=== PATIENT | female | born 1955 | race Caucasian/White ===

== ENCOUNTER 2017-03-24 11:07 | Outpatient (CLI) | payer BC ==
[~2017-03-24 11:07] MED LIST: AMLO5TAB16 PO; CLOP75TA35 PO; DILT30TA5 PO; ESOM40CA54 PO; GABA-534 PO; INSU100V11 SQ; LANTUS SQ; PER10325T PO; SITA100T11 PO
== END 2017-03-24 12:00 | disposition home or self-care (01) ==
LOC: WOUND CARE 11:07
PROVIDERS: ATTEND Surgery
DX: T87.89 Other complications of amputation stump (principal); E11.621 Type 2 diabetes mellitus with foot ulcer; L97.511 Non-pressure chronic ulcer of other part of right foot limited to breakdown of skin; E11.22 Type 2 diabetes mellitus with diabetic chronic kidney disease; I12.9 Hypertensive chronic kidney disease with stage 1 through stage 4 chronic kidney disease, or unspecified chronic kidney disease; N18.9 Chronic kidney disease, unspecified; I25.10 Atherosclerotic heart disease of native coronary artery without angina pectoris; I70.245 Atherosclerosis of native arteries of left leg with ulceration of other part of foot; E11.69 Type 2 diabetes mellitus with other specified complication; M86.9 Osteomyelitis, unspecified; I77.1 Stricture of artery; E11.51 Type 2 diabetes mellitus with diabetic peripheral angiopathy without gangrene; F17.210 Nicotine dependence, cigarettes, uncomplicated; Z79.899 Other long term (current) drug therapy; Z68.26 Body mass index [BMI] 26.0-26.9, adult; Z79.82 Long term (current) use of aspirin; Z79.4 Long term (current) use of insulin; Z90.49 Acquired absence of other specified parts of digestive tract; Y83.5 Amputation of limb(s) as the cause of abnormal reaction of the patient, or of later complication, without mention of misadventure at the time of the procedure
CPT/HCPCS: 36416; 82948; 99211; A6212; A6223; A6446

== ENCOUNTER 2017-04-01 10:28 | Day surgery (SDC) | payer BC ==
[2017-04-01] MEDS ORDERED: LIDOcaine 2% 5ml jelly ONE (11:05)
== END 2017-04-01 12:10 | disposition home or self-care (01) ==
LOC: WOUND CARE 10:28
PROVIDERS: ATTEND Surgery
DX: T87.89 Other complications of amputation stump (principal); E11.622 Type 2 diabetes mellitus with other skin ulcer; L97.821 Non-pressure chronic ulcer of other part of left lower leg limited to breakdown of skin; I77.1 Stricture of artery; I25.10 Atherosclerotic heart disease of native coronary artery without angina pectoris; E11.22 Type 2 diabetes mellitus with diabetic chronic kidney disease; I12.9 Hypertensive chronic kidney disease with stage 1 through stage 4 chronic kidney disease, or unspecified chronic kidney disease; N18.9 Chronic kidney disease, unspecified; E11.69 Type 2 diabetes mellitus with other specified complication; M86.9 Osteomyelitis, unspecified; E11.51 Type 2 diabetes mellitus with diabetic peripheral angiopathy without gangrene; F17.210 Nicotine dependence, cigarettes, uncomplicated; Z90.49 Acquired absence of other specified parts of digestive tract; Z68.26 Body mass index [BMI] 26.0-26.9, adult; Z79.82 Long term (current) use of aspirin; Z79.4 Long term (current) use of insulin; Z79.899 Other long term (current) drug therapy; Y83.5 Amputation of limb(s) as the cause of abnormal reaction of the patient, or of later complication, without mention of misadventure at the time of the procedure
CPT/HCPCS: 11042; 36416; 82948; A6021; A6212; A6222

== ENCOUNTER 2017-04-08 10:32 | Day surgery (SDC) | payer BC ==
[2017-04-08] MEDS ORDERED: LIDOcaine 2% 5ml jelly ONE (11:31)
[2017-04-08] MEDS ORDERED: hydrocortisone 1% cream 28gm TP ONE (11:50)
== END 2017-04-08 12:01 | disposition home or self-care (01) ==
LOC: WOUND CARE 10:32
PROVIDERS: ATTEND Surgery
DX: E11.622 Type 2 diabetes mellitus with other skin ulcer (principal); L97.811 Non-pressure chronic ulcer of other part of right lower leg limited to breakdown of skin; I77.1 Stricture of artery; E11.69 Type 2 diabetes mellitus with other specified complication; M86.9 Osteomyelitis, unspecified; E11.22 Type 2 diabetes mellitus with diabetic chronic kidney disease; E11.51 Type 2 diabetes mellitus with diabetic peripheral angiopathy without gangrene; I25.10 Atherosclerotic heart disease of native coronary artery without angina pectoris; I12.9 Hypertensive chronic kidney disease with stage 1 through stage 4 chronic kidney disease, or unspecified chronic kidney disease; N18.9 Chronic kidney disease, unspecified; F17.210 Nicotine dependence, cigarettes, uncomplicated; Z90.49 Acquired absence of other specified parts of digestive tract; Z68.26 Body mass index [BMI] 26.0-26.9, adult; Z79.82 Long term (current) use of aspirin; Z79.4 Long term (current) use of insulin; Z79.899 Other long term (current) drug therapy
CPT/HCPCS: 11042; 36416; 82948; A6021; A6206; A6209; A6212

== ENCOUNTER 2017-04-15 10:35 | Day surgery (SDC) | payer BC ==
[2017-04-15] MEDS ORDERED: LIDOcaine 2% 5ml jelly ONE (10:54)
== END 2017-04-15 11:44 | disposition home or self-care (01) ==
LOC: WOUND CARE 10:35
PROVIDERS: ATTEND Surgery
DX: E11.622 Type 2 diabetes mellitus with other skin ulcer (principal); L97.811 Non-pressure chronic ulcer of other part of right lower leg limited to breakdown of skin; T24.301D Burn of third degree of unspecified site of right lower limb, except ankle and foot, subsequent encounter; T31.0 Burns involving less than 10% of body surface; I77.1 Stricture of artery; E11.69 Type 2 diabetes mellitus with other specified complication; M86.9 Osteomyelitis, unspecified; E11.51 Type 2 diabetes mellitus with diabetic peripheral angiopathy without gangrene; I25.10 Atherosclerotic heart disease of native coronary artery without angina pectoris; E11.22 Type 2 diabetes mellitus with diabetic chronic kidney disease; I12.9 Hypertensive chronic kidney disease with stage 1 through stage 4 chronic kidney disease, or unspecified chronic kidney disease; N18.9 Chronic kidney disease, unspecified; F17.210 Nicotine dependence, cigarettes, uncomplicated; Z89.512 Acquired absence of left leg below knee; Z90.49 Acquired absence of other specified parts of digestive tract; Z68.26 Body mass index [BMI] 26.0-26.9, adult; Z79.82 Long term (current) use of aspirin; Z79.4 Long term (current) use of insulin; Z79.899 Other long term (current) drug therapy; X08.8XXD Exposure to other specified smoke, fire and flames, subsequent encounter
CPT/HCPCS: 11042; 36416; 82948; A6021; A6222; A6446

== ENCOUNTER 2017-04-22 10:50 | Day surgery (SDC) | payer BC ==
[2017-04-22] MEDS ORDERED: LIDOcaine 2% 5ml jelly ONE (11:19)
[2017-04-22] MEDS ORDERED: FURO-150 PO (12:52)
== END 2017-04-22 11:56 | disposition home or self-care (01) ==
LOC: WOUND CARE 10:50
PROVIDERS: ATTEND Surgery
DX: E11.622 Type 2 diabetes mellitus with other skin ulcer (principal); L97.811 Non-pressure chronic ulcer of other part of right lower leg limited to breakdown of skin; T24.301D Burn of third degree of unspecified site of right lower limb, except ankle and foot, subsequent encounter; T31.0 Burns involving less than 10% of body surface; I77.1 Stricture of artery; E11.69 Type 2 diabetes mellitus with other specified complication; M86.9 Osteomyelitis, unspecified; E11.51 Type 2 diabetes mellitus with diabetic peripheral angiopathy without gangrene; I25.10 Atherosclerotic heart disease of native coronary artery without angina pectoris; E11.22 Type 2 diabetes mellitus with diabetic chronic kidney disease; I12.9 Hypertensive chronic kidney disease with stage 1 through stage 4 chronic kidney disease, or unspecified chronic kidney disease; N18.9 Chronic kidney disease, unspecified; F17.210 Nicotine dependence, cigarettes, uncomplicated; Z89.512 Acquired absence of left leg below knee; Z90.49 Acquired absence of other specified parts of digestive tract; Z68.26 Body mass index [BMI] 26.0-26.9, adult; Z79.82 Long term (current) use of aspirin; Z79.4 Long term (current) use of insulin; Z79.899 Other long term (current) drug therapy; X08.8XXD Exposure to other specified smoke, fire and flames, subsequent encounter
CPT/HCPCS: 11042; 36416; 82948; A6021; A6196; A6206

== ENCOUNTER 2017-04-29 10:36 | Outpatient (CLI) | payer BC ==
[~2017-04-29 10:36] MED LIST changes: +FURO-150 PO
== END 2017-04-29 12:05 | disposition home or self-care (01) ==
LOC: WOUND CARE 10:36
PROVIDERS: ATTEND Surgery
DX: E11.622 Type 2 diabetes mellitus with other skin ulcer (principal); L97.811 Non-pressure chronic ulcer of other part of right lower leg limited to breakdown of skin; T24.301D Burn of third degree of unspecified site of right lower limb, except ankle and foot, subsequent encounter; T31.0 Burns involving less than 10% of body surface; I77.1 Stricture of artery; E11.69 Type 2 diabetes mellitus with other specified complication; M86.9 Osteomyelitis, unspecified; E11.51 Type 2 diabetes mellitus with diabetic peripheral angiopathy without gangrene; I25.10 Atherosclerotic heart disease of native coronary artery without angina pectoris; E11.22 Type 2 diabetes mellitus with diabetic chronic kidney disease; I12.9 Hypertensive chronic kidney disease with stage 1 through stage 4 chronic kidney disease, or unspecified chronic kidney disease; N18.9 Chronic kidney disease, unspecified; F17.210 Nicotine dependence, cigarettes, uncomplicated; Z89.512 Acquired absence of left leg below knee; Z90.49 Acquired absence of other specified parts of digestive tract; Z68.26 Body mass index [BMI] 26.0-26.9, adult; Z79.82 Long term (current) use of aspirin; Z79.4 Long term (current) use of insulin; Z79.899 Other long term (current) drug therapy; X08.8XXD Exposure to other specified smoke, fire and flames, subsequent encounter
CPT/HCPCS: 36416; 82948; 93922; 93926; 99215; A6021; A6196; A6206

== ENCOUNTER 2017-05-06 10:40 | Day surgery (SDC) | payer BC ==
[2017-05-06] MEDS ORDERED: LIDOcaine 2% 5ml jelly ONE (11:11)
[2017-05-06] MEDS ORDERED: CEPH-571 PO (13:45)
== END 2017-05-06 12:16 | disposition home or self-care (01) ==
LOC: WOUND CARE 10:40
PROVIDERS: ATTEND Surgery
DX: E11.622 Type 2 diabetes mellitus with other skin ulcer (principal); L97.811 Non-pressure chronic ulcer of other part of right lower leg limited to breakdown of skin; T24.301D Burn of third degree of unspecified site of right lower limb, except ankle and foot, subsequent encounter; T31.0 Burns involving less than 10% of body surface; I77.1 Stricture of artery; E11.69 Type 2 diabetes mellitus with other specified complication; M86.9 Osteomyelitis, unspecified; E11.51 Type 2 diabetes mellitus with diabetic peripheral angiopathy without gangrene; I25.10 Atherosclerotic heart disease of native coronary artery without angina pectoris; E11.22 Type 2 diabetes mellitus with diabetic chronic kidney disease; I12.9 Hypertensive chronic kidney disease with stage 1 through stage 4 chronic kidney disease, or unspecified chronic kidney disease; N18.9 Chronic kidney disease, unspecified; F17.210 Nicotine dependence, cigarettes, uncomplicated; Z89.512 Acquired absence of left leg below knee; Z90.49 Acquired absence of other specified parts of digestive tract; Z68.26 Body mass index [BMI] 26.0-26.9, adult; Z79.82 Long term (current) use of aspirin; Z79.4 Long term (current) use of insulin; Z79.899 Other long term (current) drug therapy; X08.8XXD Exposure to other specified smoke, fire and flames, subsequent encounter
CPT/HCPCS: 11042; 36416; 82948; 97597; A6021; A6196; A6206

== ENCOUNTER 2017-05-13 10:45 | Day surgery (SDC) | payer BC ==
[~2017-05-13 10:45] MED LIST changes: +CEPH-571 PO
[2017-05-13] MEDS ORDERED: LIDOcaine 2% 5ml jelly ONE (11:06)
[2017-05-13] MEDS ORDERED: CLIN300C11 (14:35)
== END 2017-05-13 12:15 | disposition home or self-care (01) ==
LOC: WOUND CARE 10:45
PROVIDERS: ATTEND Surgery
DX: E11.622 Type 2 diabetes mellitus with other skin ulcer (principal); L97.811 Non-pressure chronic ulcer of other part of right lower leg limited to breakdown of skin; L97.311 Non-pressure chronic ulcer of right ankle limited to breakdown of skin; E11.621 Type 2 diabetes mellitus with foot ulcer; L97.511 Non-pressure chronic ulcer of other part of right foot limited to breakdown of skin; T24.301D Burn of third degree of unspecified site of right lower limb, except ankle and foot, subsequent encounter; T31.0 Burns involving less than 10% of body surface; I77.1 Stricture of artery; E11.69 Type 2 diabetes mellitus with other specified complication; M86.9 Osteomyelitis, unspecified; E11.51 Type 2 diabetes mellitus with diabetic peripheral angiopathy without gangrene; I25.10 Atherosclerotic heart disease of native coronary artery without angina pectoris; E11.22 Type 2 diabetes mellitus with diabetic chronic kidney disease; I12.9 Hypertensive chronic kidney disease with stage 1 through stage 4 chronic kidney disease, or unspecified chronic kidney disease; N18.9 Chronic kidney disease, unspecified; F17.210 Nicotine dependence, cigarettes, uncomplicated; Z89.512 Acquired absence of left leg below knee; Z90.49 Acquired absence of other specified parts of digestive tract; Z68.26 Body mass index [BMI] 26.0-26.9, adult; Z79.82 Long term (current) use of aspirin; Z79.4 Long term (current) use of insulin; Z79.899 Other long term (current) drug therapy; X08.8XXD Exposure to other specified smoke, fire and flames, subsequent encounter
CPT/HCPCS: 36416; 82948; 97597; A6021; A6196; A6206; A6446

== ENCOUNTER 2017-05-20 10:48 | Day surgery (SDC) | payer BC ==
[~2017-05-20 10:48] MED LIST changes: -CEPH-571 PO; +CLIN300C11
[2017-05-20] MEDS ORDERED: LIDOcaine 2% 5ml jelly ONE (11:39)
== END 2017-05-20 12:20 | disposition home or self-care (01) ==
LOC: WOUND CARE 10:48
PROVIDERS: ATTEND Surgery
DX: T24.301D Burn of third degree of unspecified site of right lower limb, except ankle and foot, subsequent encounter (principal); T31.0 Burns involving less than 10% of body surface; S91.104D Unspecified open wound of right lesser toe(s) without damage to nail, subsequent encounter; S91.101D Unspecified open wound of right great toe without damage to nail, subsequent encounter; I25.10 Atherosclerotic heart disease of native coronary artery without angina pectoris; E11.69 Type 2 diabetes mellitus with other specified complication; I77.1 Stricture of artery; M86.9 Osteomyelitis, unspecified; E11.51 Type 2 diabetes mellitus with diabetic peripheral angiopathy without gangrene; E11.22 Type 2 diabetes mellitus with diabetic chronic kidney disease; N18.9 Chronic kidney disease, unspecified; F17.210 Nicotine dependence, cigarettes, uncomplicated; Z89.512 Acquired absence of left leg below knee; Z90.49 Acquired absence of other specified parts of digestive tract; Z68.26 Body mass index [BMI] 26.0-26.9, adult; Z79.82 Long term (current) use of aspirin; Z79.4 Long term (current) use of insulin; Z79.899 Other long term (current) drug therapy; X08.8XXD Exposure to other specified smoke, fire and flames, subsequent encounter; X58.XXXD Exposure to other specified factors, subsequent encounter
CPT/HCPCS: 11042; 97597; A6021; A6196; A6206; A6446

== ENCOUNTER 2017-05-26 09:35 | Day surgery (SDC) | payer BC ==
[2017-05-26] MEDS ORDERED: LIDOcaine 2% 5ml jelly ONE (10:02)
== END 2017-05-26 11:16 | disposition home or self-care (01) ==
LOC: WOUND CARE 09:35
PROVIDERS: ATTEND Surgery
DX: T24.301D Burn of third degree of unspecified site of right lower limb, except ankle and foot, subsequent encounter (principal); T31.0 Burns involving less than 10% of body surface; S91.104D Unspecified open wound of right lesser toe(s) without damage to nail, subsequent encounter; S91.101D Unspecified open wound of right great toe without damage to nail, subsequent encounter; I25.10 Atherosclerotic heart disease of native coronary artery without angina pectoris; E11.69 Type 2 diabetes mellitus with other specified complication; I77.1 Stricture of artery; M86.9 Osteomyelitis, unspecified; E11.51 Type 2 diabetes mellitus with diabetic peripheral angiopathy without gangrene; E11.22 Type 2 diabetes mellitus with diabetic chronic kidney disease; N18.9 Chronic kidney disease, unspecified; F17.210 Nicotine dependence, cigarettes, uncomplicated; Z89.512 Acquired absence of left leg below knee; Z90.49 Acquired absence of other specified parts of digestive tract; Z68.26 Body mass index [BMI] 26.0-26.9, adult; Z79.82 Long term (current) use of aspirin; Z79.4 Long term (current) use of insulin; Z79.899 Other long term (current) drug therapy; X08.8XXD Exposure to other specified smoke, fire and flames, subsequent encounter; X58.XXXD Exposure to other specified factors, subsequent encounter
CPT/HCPCS: 11042; 97597; A6021; A6196; A6206; A6212; A6446

== ENCOUNTER 2017-05-30 12:30 | Inpatient (IN) | payer BC ==
[~2017-05-30] VITALS: Ht 157.5 cm; Wt 65.9 kg
[2017-05-30] MEDS ORDERED: heparin 10,000 units/1 ML INJ IV ONE (13:00)
[2017-05-30] MEDS ORDERED: heparin 10,000 units/1 ML INJ IV PRN (13:00)
[2017-05-30 13:39] LABS: BASOPHILS % (AUTO) 0.3 % (0-1); EOSINOPHILS # (AUTO) 0.4 X10'3 (0-0.9); EOSINOPHILS % (AUTO) 3.1 % (0-6); HEMATOCRIT 37.5 % (35.0-45.0); HEMOGLOBIN 12.3 g/dl (12.0-16.0); LYMPHOCYTES # (AUTO) 1.9 X10'3 (1.1-4.8); LYMPHOCYTES % (AUTO) 16.3 % (21-51); MEAN CORPUSCULAR HEMOGLOBIN 23.8 PG (27.0-31.0); MEAN CORPUSCULAR HGB CONC 32.8 % (33.0-36.5); MEAN CORPUSCULAR VOLUME 72.6 FL (78-98); MEAN PLATELET VOLUME 7.6 FL (7.4-10.4); MONOCYTES # (AUTO) 0.7 X10'3 (0-0.9); MONOCYTES % (AUTO) 6.1 % (2-12); NEUTROPHILS # (AUTO) 8.4 X10'3 (1.8-7.7); NEUTROPHILS % (AUTO) 74.2 % (42-75); PLATELET COUNT 444 X10'3 (140-440); RED BLOOD COUNT 5.16 X10'6 (4.20-5.60); RED CELL DISTRIBUTION WIDTH 13.8 % (11.5-14.5); WHITE BLOOD COUNT 11.4 X10'3 (4.5-11.0)
[2017-05-30] MEDS ORDERED: ATOR20TA66 PO (13:48)
[2017-05-30] MEDS ORDERED: AMIT10TA6 PO (13:48)
[2017-05-30] MEDS ORDERED: LIRA0.6P SUBCUT (13:48)
[2017-05-30] MEDS ORDERED: GABA800T2 PO (13:48)
[2017-05-30 13:49] LABS: INR 1.1 INR; PARTIAL THROMBOPLASTIN TIME 27 SECONDS (22-32)
[2017-05-30 13:54] LABS: ALANINE AMINOTRANSFERASE 22 U/L (12-78); ALBUMIN 2.8 G/DL (3.4-5.0); ALBUMIN/GLOBULIN RATIO 0.5 (1.1-1.5); ALKALINE PHOSPHATASE 191 IU/L (46-116); ANION GAP 9 (8-16); ASPARTATE AMINO TRANSFERASE 24 U/L (10-37); BILIRUBIN,TOTAL 0.3 MG/DL (0.1-1.0); BLOOD UREA NITROGEN 15 MG/DL (7-18); BUN/CREATININE RATIO 23.4 (6.6-38.0); CALCIUM 9.6 MG/DL (8.5-10.1); CHLORIDE 98 MMOL/L (99-107); CREATININE 0.64 MG/DL (0.40-0.90); GLUCOSE 238 MG/DL (70-104); MAGNESIUM 1.7 MG/DL (1.5-2.4); POTASSIUM 3.3 MMOL/L (3.5-5.1); SODIUM 138 MMOL/L (135-145); TOTAL CARBON DIOXIDE 31.5 MMOL/L (24-32); eGFR > 90 ML/MIN
[2017-05-30] MEDS ORDERED: HYDROcodone/acetaminophen 5mg/325mg tablet PO PRN (15:25)
[2017-05-30] MEDS ORDERED: potassium Cl 20 mEq SR tablet PO PRN (15:25)
[2017-05-30] MEDS ORDERED: magnesium 4gm in 100ml NS 100 ML IV PRN (15:25)
[2017-05-30] MEDS ORDERED: magnesium hydroxide 30ml (MOM) UD suspension PO PRN (15:25)
[2017-05-30] MEDS ORDERED: magnesium 2GM in 50ml NS 50 ML IV PRN (15:25)
[2017-05-30] MEDS ORDERED: HYDROcodone/acetaminophen 10/325mg tab PO PRN (15:25)
[2017-05-30] MEDS ORDERED: bisacodyl 10mg suppository rectal RC PRN (15:25)
[2017-05-30] MEDS ORDERED: potassium Cl 40MEQ/NS 500ml 500 ML IV PRN ×2 (15:25)
[2017-05-30] MEDS ORDERED: morphine 4 MG/ML inj SYRINge IV PRN ×2 (15:25)
[2017-05-30] MEDS ORDERED: mag hydrox/Alum hydrox/simeth 30ml oral suspension PO PRN (15:25)
[2017-05-30] MEDS ORDERED: vancomycin/NS 1 GM ADD-VANTAGE 250 ML IV ONE (15:36)
[2017-05-30] MEDS ORDERED: MESSAGE TO PHARMACY PO ONE (15:40)
[2017-05-30] MEDS ORDERED: glucagon, human recombinant 1mg kit SUBCUT PRN (15:40)
[2017-05-30] MEDS ORDERED: dextrose 50%-water 50ml dispensing syringe IV PRN ×2 (15:40)
[2017-05-30] MEDS ORDERED: dextrose ORAL solution 15 GM/59 ML bottle PO PRN ×2 (15:40)
[2017-05-30 16:19] LABS: HEMOGLOBIN A1C 8.4 % (4.5-6.2)
[2017-05-30] MEDS: metroNIDAZOLE-Flagyl 500mg/NS 100 ML IV SCH ×2 (16:20→23:48)
[2017-05-30] MEDS: potassium cl 20mEq in 1/2 NS 1,000 ML IV SCH (17:09)
[2017-05-30] MEDS: aztreonam inj. 1,000 MG in normal saline 100ml IV soln 100 ML IV SCH (18:42)
[2017-05-30 19:00] VITALS: BP 148/63
[2017-05-30] MEDS: oxyCODONE/APAP 10/325mg tablet PO PRN (20:11)
[2017-05-30] MEDS: diltiazem 30mg tablet PO SCH (20:26)
[2017-05-30] MEDS: docusate sod 100mg capsule PO SCH (20:26)
[2017-05-30] MEDS: gabapentin 400mg capsule PO SCH (20:26)
[2017-05-30] MEDS: insulin glargine (Lantus) pen - multi-dose SQ SCH (20:33)
[2017-05-30] MEDS: heparin 10,000 units/1 ML INJ IV PRN (21:28)
[2017-05-30 23:00] VITALS: BP 122/54
[2017-05-31] VITALS (15 sets, daily range): BP systolic 122–167; BP diastolic 49–67
[2017-05-31] MEDS: aztreonam inj. 1,000 MG in normal saline 100ml IV soln 100 ML IV SCH ×4 (01:09→23:59)
[2017-05-31] MEDS: diltiazem 30mg tablet PO SCH ×4 (02:08→21:27)
[2017-05-31] MEDS: oxyCODONE/APAP 10/325mg tablet PO PRN (02:08)
[2017-05-31] MEDS: vancomycin/NS 1 GM ADD-VANTAGE 250 ML IV SCH ×2 (03:44→21:27)
[2017-05-31] MEDS: potassium cl 20mEq in 1/2 NS 1,000 ML IV SCH ×2 (03:53→18:43)
[2017-05-31 03:56] LABS: BASOPHILS % (AUTO) 0.5 % (0-1); EOSINOPHILS # (AUTO) 0.5 X10'3 (0-0.9); EOSINOPHILS % (AUTO) 5.5 % (0-6); HEMATOCRIT 32.3 % (35.0-45.0); HEMOGLOBIN 10.9 g/dl (12.0-16.0); LYMPHOCYTES # (AUTO) 1.8 X10'3 (1.1-4.8); LYMPHOCYTES % (AUTO) 21.9 % (21-51); MEAN CORPUSCULAR HEMOGLOBIN 24.1 PG (27.0-31.0); MEAN CORPUSCULAR HGB CONC 33.9 % (33.0-36.5); MEAN PLATELET VOLUME 7.6 FL (7.4-10.4); MONOCYTES # (AUTO) 0.6 X10'3 (0-0.9); MONOCYTES % (AUTO) 7.2 % (2-12); NEUTROPHILS # (AUTO) 5.4 X10'3 (1.8-7.7); NEUTROPHILS % (AUTO) 64.9 % (42-75); PLATELET COUNT 378 X10'3 (140-440); RED BLOOD COUNT 4.55 X10'6 (4.20-5.60); RED CELL DISTRIBUTION WIDTH 13.6 % (11.5-14.5); WHITE BLOOD COUNT 8.3 X10'3 (4.5-11.0)
[2017-05-31 04:09] LABS: ALBUMIN 2.3 G/DL (3.4-5.0); ANION GAP 7 (8-16); BLOOD UREA NITROGEN 11 MG/DL (7-18); BUN/CREATININE RATIO 21.2 (6.6-38.0); CALCIUM 8.3 MG/DL (8.5-10.1); CHLORIDE 103 MMOL/L (99-107); CHOL/HDL RATIO 5.2 (0.00-4.99); CHOLESTEROL 124 MG/DL (0-200); CREATININE 0.52 MG/DL (0.40-0.90); GLUCOSE 137 MG/DL (70-104); HDL CHOLESTEROL 24 MG/DL (35-60); LDL CHOLESTEROL 77 MG/DL (50-100); MAGNESIUM 1.5 MG/DL (1.5-2.4); POTASSIUM 3.6 MMOL/L (3.5-5.1); SODIUM 138 MMOL/L (135-145); TOTAL CARBON DIOXIDE 28.5 MMOL/L (24-32); TRIGLYCERIDES 127 MG/DL (20-135); TROPONIN I < 0.04 NG/ML (0.0-0.05); eGFR > 90 ML/MIN
[2017-05-31] MEDS: heparin 10,000 units/1 ML INJ IV PRN (04:36)
[2017-05-31] MEDS: K and/or MAG REPLACEMENT MC SCH (06:49)
[2017-05-31] MEDS: pantoprazole 40mg Tablet.DR PO SCH (07:30)
[2017-05-31] MEDS: clopidogrel 75mg tablet PO SCH (08:00)
[2017-05-31] MEDS: docusate sod 100mg capsule PO SCH ×2 (08:00→21:27)
[2017-05-31] MEDS: gabapentin 400mg capsule PO SCH ×3 (08:00→21:27)
[2017-05-31] MEDS: amitriptyline 10mg tablet PO SCH (08:00)
[2017-05-31] MEDS: atorvastatin 20mg tablet PO SCH (08:00)
[2017-05-31] MEDS: amLODIPine 5mg tablet PO SCH (08:00)
[2017-05-31] MEDS: insulin Lispro (HumaLOG) vial - multi-dose SQ SCH (08:39)
[2017-05-31] MEDS: metroNIDAZOLE-Flagyl 500mg/NS 100 ML IV SCH ×2 (10:28→18:43)
[2017-05-31] MEDS ORDERED: heparin 10,000 units/1 ML INJ ONE (10:37)
[2017-05-31] MEDS ORDERED: gadopentetate dimeglumine 7.5 MMOL/15 ML syringe ONE (10:46)
[2017-05-31] MEDS ORDERED: sevoflurane 250ml liquid IH ONE (12:28)
[2017-05-31] MEDS ORDERED: MIDAZolam 5mg/5ml vial ONE (12:32)
[2017-05-31] MEDS ORDERED: fentaNYL /PF 50mcg/ml 5ml ampule ONE (12:32)
[2017-05-31] MEDS ORDERED: propofol inj 20 ML IV ONE (12:33)
[2017-05-31] MEDS ORDERED: LIDOcaine 1%/PF (10mg/ml) 5ml vial ONE (12:33)
[2017-05-31] MEDS ORDERED: albumin (Human) 5% 250ml 250 ML IV ONE ×2 (12:45→12:51)
[2017-05-31] MEDS ORDERED: ePHEDrine 50MG/ML INJ. ONE (12:49)
[2017-05-31] MEDS ORDERED: LIDOcaine 2% (20mg/ml) 5ml vial ONE (12:50)
[2017-05-31] MEDS ORDERED: metoclopramide 5 mg/ml inj ONE (12:54)
[2017-05-31] MEDS ORDERED: rocuronium 10mg/ml inj IV ONE ×2 (13:09→15:02)
[2017-05-31] MEDS ORDERED: ringers solution, lacted 1,000 ML IV SCH (13:26)
[2017-05-31] MEDS ORDERED: labetalol 5mg/ml 20ml inj. IV PRN (13:30)
[2017-05-31] MEDS ORDERED: proMETHazine 25mg rectal suppository RC PRN (13:30)
[2017-05-31] MEDS ORDERED: morphine 4 MG/ML inj SYRINge IV PRN ×2 (13:30)
[2017-05-31] MEDS ORDERED: fentaNYL/PF 50MCG/1 ML 2ML syringe IV PRN ×2 (13:30)
[2017-05-31] MEDS ORDERED: hydrALAZINE 20mg/ml inj. IV PRN (13:30)
[2017-05-31] MEDS ORDERED: aprepitant 40mg capsule PO ONE (13:30)
[2017-05-31] MEDS ORDERED: labetalol 5mg/ml 20ml inj. IV ONE (14:10)
[2017-05-31] MEDS ORDERED: fentaNYL/PF 50MCG/1 ML 2ML syringe ONE ×2 (14:50→15:59)
[2017-05-31] MEDS ORDERED: heparin 1,000unit/ml 10ml vial 10 ML ONE (15:01)
[2017-05-31] MEDS ORDERED: glycopyrrolate 0.2mg/ml inj ONE (16:16)
[2017-05-31] MEDS ORDERED: neostigmine methylsulfate 1 MG/ML 10ml vial ONE (16:16)
[2017-05-31] MEDS ORDERED: morphine 10mg/ml inj. ONE ×2 (16:28→16:38)
[2017-05-31 17:28] LABS: INR 1.1 INR; PROTHROMBIN TIME 11.8 SECONDS (9.0-12.0)
[2017-05-31 17:31] LABS: PARTIAL THROMBOPLASTIN TIME 123 SECONDS (22-32)
[2017-05-31 17:35] LABS: ISTAT ANION GAP 11 (8-12); ISTAT BUN 4 mg/dL (6-19); ISTAT CL 102 mmol/L (99-107); ISTAT CREATININE 0.3 mg/dL (0.6-1.1); ISTAT GLUCOSE 150 mg/dL (70-104); ISTAT HGB 8.8 g/dl (12.0-16.0); ISTAT Hct 26 %PCV (35-48); ISTAT IONIZED CALCIUM 1.18 mmol/L (1.03-1.32); ISTAT K 3.3 mmol/L (3.5-5.1); ISTAT NA 140 mmol/L (135-145); ISTAT TOTAL CO2 27 mmol/L (24-32); ISTAT eGFR > 90 ML/MIN; POC BUN/CREATININE RATIO 13.3 (6.6-38.0)
[2017-05-31] MEDS ORDERED: HYDROmorphone/NS 1 mg/ml CADD 50 ML IV SCH (19:20)
[2017-05-31] MEDS ORDERED: heparin 10,000 units/1 ML INJ IV PRN (19:20)
[2017-05-31] MEDS ORDERED: naloxone 0.4 mg/ml inj IV PRN (19:50)
[2017-05-31] MEDS ORDERED: morphine 4 MG/ML inj SYRINge IV ONE (19:55)
[2017-05-31] MEDS: MORPHINE CADD 5 MG/ML 50ML IV SCH ×2 (20:47→23:00)
[2017-05-31] MEDS: insulin glargine (Lantus) pen - multi-dose SQ SCH (21:32)
[2017-06-01] VITALS (23 sets, daily range): BP systolic 95–155; BP diastolic 42–58
[2017-06-01] MEDS: MORPHINE CADD 5 MG/ML 50ML IV SCH ×4 (01:00→07:00)
[2017-06-01] MEDS: metroNIDAZOLE-Flagyl 500mg/NS 100 ML IV SCH ×4 (01:26→23:58)
[2017-06-01] MEDS: diltiazem 30mg tablet PO SCH ×4 (01:59→21:14)
[2017-06-01] MEDS: HYDROcodone/acetaminophen 10/325mg tab PO PRN ×3 (02:06→14:38)
[2017-06-01 03:33] LABS: BASOPHILS % (AUTO) 0.4 % (0-1); EOSINOPHILS # (AUTO) 0.4 X10'3 (0-0.9); EOSINOPHILS % (AUTO) 3.6 % (0-6); HEMATOCRIT 27.1 % (35.0-45.0); LYMPHOCYTES # (AUTO) 1.5 X10'3 (1.1-4.8); LYMPHOCYTES % (AUTO) 14.1 % (21-51); MEAN CORPUSCULAR HEMOGLOBIN 24.1 PG (27.0-31.0); MEAN CORPUSCULAR HGB CONC 33.3 % (33.0-36.5); MEAN CORPUSCULAR VOLUME 72.2 FL (78-98); MEAN PLATELET VOLUME 7.7 FL (7.4-10.4); MONOCYTES # (AUTO) 0.6 X10'3 (0-0.9); MONOCYTES % (AUTO) 5.6 % (2-12); NEUTROPHILS # (AUTO) 8.3 X10'3 (1.8-7.7); NEUTROPHILS % (AUTO) 76.3 % (42-75); PLATELET COUNT 385 X10'3 (140-440); RED BLOOD COUNT 3.75 X10'6 (4.20-5.60); RED CELL DISTRIBUTION WIDTH 13.7 % (11.5-14.5); WHITE BLOOD COUNT 10.9 X10'3 (4.5-11.0)
[2017-06-01 03:45] LABS: ALBUMIN 2.5 G/DL (3.4-5.0); ANION GAP 8 (8-16); BLOOD UREA NITROGEN 4 MG/DL (7-18); BUN/CREATININE RATIO 11.4 (6.6-38.0); CALCIUM 8.2 MG/DL (8.5-10.1); CHLORIDE 103 MMOL/L (99-107); CREATININE 0.35 MG/DL (0.40-0.90); GLUCOSE 155 MG/DL (70-104); MAGNESIUM 1.4 MG/DL (1.5-2.4); POTASSIUM 3.3 MMOL/L (3.5-5.1); SODIUM 139 MMOL/L (135-145); TOTAL CARBON DIOXIDE 27.7 MMOL/L (24-32); eGFR > 90 ML/MIN
[2017-06-01] MEDS: potassium cl 20mEq in 1/2 NS 1,000 ML IV SCH ×2 (07:30→21:23)
[2017-06-01] MEDS: pantoprazole 40mg Tablet.DR PO SCH (07:31)
[2017-06-01] MEDS: gabapentin 400mg capsule PO SCH ×3 (07:32→21:15)
[2017-06-01] MEDS: amLODIPine 5mg tablet PO SCH (07:32)
[2017-06-01] MEDS: atorvastatin 20mg tablet PO SCH (07:32)
[2017-06-01] MEDS: potassium Cl 20 mEq SR tablet PO PRN ×3 (07:33→21:14)
[2017-06-01] MEDS: clopidogrel 75mg tablet PO SCH (07:33)
[2017-06-01] MEDS: docusate sod 100mg capsule PO SCH ×2 (07:43→21:14)
[2017-06-01] MEDS: K and/or MAG REPLACEMENT MC SCH (08:00)
[2017-06-01] MEDS: aztreonam inj. 1,000 MG in normal saline 100ml IV soln 100 ML IV SCH ×2 (08:49→17:16)
[2017-06-01] MEDS: amitriptyline 10mg tablet PO SCH (08:49)
[2017-06-01] MEDS: magnesium Cl slow-release 64mg tablet PO PRN ×2 (08:50→21:15)
[2017-06-01] MEDS: morphine/NS 5 mg/ml CADD 50 ML IV SCH ×9 (09:00→23:59)
[2017-06-01] MEDS: vancomycin/NS 1 GM ADD-VANTAGE 250 ML IV SCH ×2 (10:07→21:28)
[2017-06-01] MEDS ORDERED: apixaban 5mg tablet PO SCH (14:33)
[2017-06-01 15:14] LABS: HEMOGLOBIN 9.1 g/dl (12.0-16.0); MEAN CORPUSCULAR HEMOGLOBIN 24.3 PG (27.0-31.0); MEAN CORPUSCULAR HGB CONC 33.5 % (33.0-36.5); MEAN CORPUSCULAR VOLUME 72.6 FL (78-98); MEAN PLATELET VOLUME 7.9 FL (7.4-10.4); PLATELET COUNT 403 X10'3 (140-440); RED BLOOD COUNT 3.72 X10'6 (4.20-5.60); WHITE BLOOD COUNT 13.1 X10'3 (4.5-11.0)
[2017-06-01] MEDS ORDERED: VANCOMYCIN LEVEL IV ONE (15:30)
[2017-06-01] MEDS: apixaban 5mg tablet PO SCH ×2 (15:38→20:00)
[2017-06-01] MEDS: lactobacillus rhamnosus 10,000 MMU CELLS/CAPSULE PO SCH (21:14)
[2017-06-01] MEDS: ferrous sulfate 325mg tablet PO SCH (21:15)
[2017-06-01] MEDS: insulin glargine (Lantus) pen - multi-dose SQ SCH (21:20)
[2017-06-01 23:05] LABS: HEMATOCRIT 24.4 % (35.0-45.0); HEMOGLOBIN 8.1 g/dl (12.0-16.0); MEAN CORPUSCULAR HEMOGLOBIN 23.9 PG (27.0-31.0); MEAN CORPUSCULAR HGB CONC 33.1 % (33.0-36.5); MEAN CORPUSCULAR VOLUME 72.1 FL (78-98); MEAN PLATELET VOLUME 7.6 FL (7.4-10.4); PLATELET COUNT 341 X10'3 (140-440); RED BLOOD COUNT 3.38 X10'6 (4.20-5.60); RED CELL DISTRIBUTION WIDTH 14.8 % (11.5-14.5); WHITE BLOOD COUNT 10.9 X10'3 (4.5-11.0)
[2017-06-02] VITALS (16 sets, daily range): BP systolic 93–142; BP diastolic 47–74
[2017-06-02] MEDS: aztreonam inj. 1,000 MG in normal saline 100ml IV soln 100 ML IV SCH ×3 (01:15→15:46)
[2017-06-02] MEDS: acetaminophen 325mg tablet PO PRN ×2 (01:30→15:46)
[2017-06-02] MEDS: diltiazem 30mg tablet PO SCH ×4 (01:32→20:01)
[2017-06-02] MEDS: morphine/NS 5 mg/ml CADD 50 ML IV SCH ×11 (03:00→23:00)
[2017-06-02] MEDS: potassium cl 20mEq in 1/2 NS 1,000 ML IV SCH ×2 (05:53→09:32)
[2017-06-02 06:17] LABS: BASOPHILS % (AUTO) 0.3 % (0-1); EOSINOPHILS # (AUTO) 0.3 X10'3 (0-0.9); HEMOGLOBIN 8.6 g/dl (12.0-16.0); LYMPHOCYTES # (AUTO) 2.3 X10'3 (1.1-4.8); LYMPHOCYTES % (AUTO) 17.7 % (21-51); MEAN CORPUSCULAR HGB CONC 33.1 % (33.0-36.5); MEAN CORPUSCULAR VOLUME 72.6 FL (78-98); MEAN PLATELET VOLUME 7.6 FL (7.4-10.4); MONOCYTES # (AUTO) 1.1 X10'3 (0-0.9); MONOCYTES % (AUTO) 8.2 % (2-12); NEUTROPHILS # (AUTO) 9.3 X10'3 (1.8-7.7); NEUTROPHILS % (AUTO) 71.8 % (42-75); PLATELET COUNT 376 X10'3 (140-440); RED BLOOD COUNT 3.58 X10'6 (4.20-5.60); RED CELL DISTRIBUTION WIDTH 13.7 % (11.5-14.5); WHITE BLOOD COUNT 12.9 X10'3 (4.5-11.0)
[2017-06-02 06:29] LABS: ALBUMIN 2.2 G/DL (3.4-5.0); ANION GAP 7 (8-16); BLOOD UREA NITROGEN 5 MG/DL (7-18); BUN/CREATININE RATIO 9.8 (6.6-38.0); CHLORIDE 102 MMOL/L (99-107); CREATININE 0.51 MG/DL (0.40-0.90); GLUCOSE 166 MG/DL (70-104); MAGNESIUM 1.6 MG/DL (1.5-2.4); POTASSIUM 3.8 MMOL/L (3.5-5.1); SODIUM 136 MMOL/L (135-145); TOTAL CARBON DIOXIDE 26.8 MMOL/L (24-32); eGFR > 90 ML/MIN
[2017-06-02] MEDS: atorvastatin 20mg tablet PO SCH (07:39)
[2017-06-02] MEDS: lactobacillus rhamnosus 10,000 MMU CELLS/CAPSULE PO SCH ×2 (07:39→20:02)
[2017-06-02] MEDS: gabapentin 400mg capsule PO SCH ×3 (07:39→21:59)
[2017-06-02] MEDS: multivitamins, therapeutics tablet PO SCH (07:39)
[2017-06-02] MEDS: docusate sod 100mg capsule PO SCH ×2 (07:39→20:02)
[2017-06-02] MEDS: ferrous sulfate 325mg tablet PO SCH ×2 (07:40→20:01)
[2017-06-02] MEDS: metroNIDAZOLE-Flagyl 500mg/NS 100 ML IV SCH ×2 (07:40→16:44)
[2017-06-02] MEDS: pantoprazole 40mg Tablet.DR PO SCH (07:40)
[2017-06-02] MEDS: amitriptyline 10mg tablet PO SCH (07:40)
[2017-06-02] MEDS: amLODIPine 5mg tablet PO SCH (07:40)
[2017-06-02] MEDS: K and/or MAG REPLACEMENT MC SCH (08:17)
[2017-06-02] MEDS: apixaban 5mg tablet PO SCH ×2 (08:33→20:01)
[2017-06-02] MEDS: clopidogrel 75mg tablet PO SCH (08:33)
[2017-06-02 13:39] LABS: HEMATOCRIT 22.9 % (35.0-45.0); HEMOGLOBIN 7.6 g/dl (12.0-16.0); MEAN CORPUSCULAR HEMOGLOBIN 24.3 PG (27.0-31.0); MEAN CORPUSCULAR VOLUME 73.5 FL (78-98); MEAN PLATELET VOLUME 7.3 FL (7.4-10.4); PLATELET COUNT 370 X10'3 (140-440); RED BLOOD COUNT 3.11 X10'6 (4.20-5.60); RED CELL DISTRIBUTION WIDTH 14.2 % (11.5-14.5); WHITE BLOOD COUNT 12.6 X10'3 (4.5-11.0)
[2017-06-02] MEDS ORDERED: vancomycin inj 1,250 MG in normal saline 250ml IV soln 250 ML IV SCH (16:00)
[2017-06-02] MEDS: piperacillin/tazo 4.5gm/100ml 100 ML IV SCH (20:02)
[2017-06-02] MEDS: insulin glargine (Lantus) pen - multi-dose SQ SCH (22:01)
[2017-06-02 22:34] LABS: MEAN CORPUSCULAR HEMOGLOBIN 23.9 PG (27.0-31.0); MEAN CORPUSCULAR HGB CONC 32.3 % (33.0-36.5); MEAN CORPUSCULAR VOLUME 73.8 FL (78-98); MEAN PLATELET VOLUME 7.2 FL (7.4-10.4); PLATELET COUNT 333 X10'3 (140-440); RED BLOOD COUNT 2.73 X10'6 (4.20-5.60); RED CELL DISTRIBUTION WIDTH 13.8 % (11.5-14.5); WHITE BLOOD COUNT 10.6 X10'3 (4.5-11.0)
[2017-06-02 23:09] LABS: HEMATOCRIT 20.2 % (35.0-45.0); HEMOGLOBIN 6.5 g/dl (12.0-16.0)
[2017-06-02] MEDS ORDERED: diphenhydrAMINE 50 mg/ml inj IV ONE (23:55)
[2017-06-02] MEDS ORDERED: acetaminophen 325mg tablet PO ONE (23:55)
[2017-06-03] VITALS (9 sets, daily range): BP systolic 104–130; BP diastolic 45–57
[2017-06-03] MEDS: morphine/NS 5 mg/ml CADD 50 ML IV SCH ×11 (01:00→23:00)
[2017-06-03] MEDS: piperacillin/tazo 4.5gm/100ml 100 ML IV SCH ×4 (04:03→21:18)
[2017-06-03] MEDS: diltiazem 30mg tablet PO SCH ×4 (04:03→21:18)
[2017-06-03] MEDS: apixaban 5mg tablet PO SCH ×2 (08:00→21:18)
[2017-06-03] MEDS: K and/or MAG REPLACEMENT MC SCH (08:00)
[2017-06-03] MEDS: clopidogrel 75mg tablet PO SCH (08:00)
[2017-06-03] MEDS: lactobacillus rhamnosus 10,000 MMU CELLS/CAPSULE PO SCH ×2 (09:21→21:18)
[2017-06-03] MEDS: pantoprazole 40mg Tablet.DR PO SCH (09:21)
[2017-06-03] MEDS: gabapentin 400mg capsule PO SCH ×3 (09:21→21:19)
[2017-06-03] MEDS: atorvastatin 20mg tablet PO SCH (09:21)
[2017-06-03] MEDS: multivitamins, therapeutics tablet PO SCH (09:22)
[2017-06-03] MEDS: ferrous sulfate 325mg tablet PO SCH ×2 (09:22→21:18)
[2017-06-03] MEDS: docusate sod 100mg capsule PO SCH ×2 (09:29→21:18)
[2017-06-03 09:53] LABS: BASOPHILS # (AUTO) 0.1 X10'3 (0-0.2); BASOPHILS % (AUTO) 0.7 % (0-1); EOSINOPHILS # (AUTO) 0.3 X10'3 (0-0.9); EOSINOPHILS % (AUTO) 2.9 % (0-6); HEMATOCRIT 26.4 % (35.0-45.0); HEMOGLOBIN 8.9 g/dl (12.0-16.0); LYMPHOCYTES # (AUTO) 1.2 X10'3 (1.1-4.8); LYMPHOCYTES % (AUTO) 10.7 % (21-51); MEAN CORPUSCULAR HEMOGLOBIN 25.6 PG (27.0-31.0); MEAN CORPUSCULAR HGB CONC 33.8 % (33.0-36.5); MEAN CORPUSCULAR VOLUME 75.7 FL (78-98); MEAN PLATELET VOLUME 7.4 FL (7.4-10.4); MONOCYTES # (AUTO) 0.8 X10'3 (0-0.9); MONOCYTES % (AUTO) 7.4 % (2-12); NEUTROPHILS # (AUTO) 8.5 X10'3 (1.8-7.7); NEUTROPHILS % (AUTO) 78.3 % (42-75); PLATELET COUNT 297 X10'3 (140-440); RED BLOOD COUNT 3.49 X10'6 (4.20-5.60); RED CELL DISTRIBUTION WIDTH 14.5 % (11.5-14.5); WHITE BLOOD COUNT 10.8 X10'3 (4.5-11.0)
[2017-06-03 10:02] LABS: ALBUMIN 1.8 G/DL (3.4-5.0); ANION GAP 7 (8-16); BLOOD UREA NITROGEN 4 MG/DL (7-18); BUN/CREATININE RATIO 8.2 (6.6-38.0); CALCIUM 7.6 MG/DL (8.5-10.1); CHLORIDE 102 MMOL/L (99-107); CREATININE 0.49 MG/DL (0.40-0.90); GLUCOSE 195 MG/DL (70-104); MAGNESIUM 1.4 MG/DL (1.5-2.4); POTASSIUM 3.1 MMOL/L (3.5-5.1); SODIUM 137 MMOL/L (135-145); TOTAL CARBON DIOXIDE 28.2 MMOL/L (24-32); eGFR > 90 ML/MIN
[2017-06-03] MEDS ORDERED: potassium Cl 40MEQ/NS 500ml 500 ML IV PRN (11:50)
[2017-06-03] MEDS ORDERED: potassium Cl 20 mEq SR tablet PO PRN (11:50)
[2017-06-03] MEDS: potassium Cl 40MEQ/NS 500ml 500 ML IV PRN (11:57)
[2017-06-03] MEDS: amitriptyline 10mg tablet PO SCH (14:57)
[2017-06-03 20:17] LABS: BASOPHILS # (AUTO) 0.1 X10'3 (0-0.2); BASOPHILS % (AUTO) 0.8 % (0-1); EOSINOPHILS # (AUTO) 0.5 X10'3 (0-0.9); EOSINOPHILS % (AUTO) 5.3 % (0-6); HEMATOCRIT 26.8 % (35.0-45.0); LYMPHOCYTES # (AUTO) 1.4 X10'3 (1.1-4.8); MEAN CORPUSCULAR HEMOGLOBIN 25.3 PG (27.0-31.0); MEAN CORPUSCULAR HGB CONC 33.5 % (33.0-36.5); MEAN CORPUSCULAR VOLUME 75.7 FL (78-98); MEAN PLATELET VOLUME 7.7 FL (7.4-10.4); MONOCYTES # (AUTO) 0.8 X10'3 (0-0.9); MONOCYTES % (AUTO) 7.3 % (2-12); NEUTROPHILS # (AUTO) 7.5 X10'3 (1.8-7.7); NEUTROPHILS % (AUTO) 72.6 % (42-75); PLATELET COUNT 337 X10'3 (140-440); RED BLOOD COUNT 3.54 X10'6 (4.20-5.60); RED CELL DISTRIBUTION WIDTH 14.6 % (11.5-14.5); WHITE BLOOD COUNT 10.3 X10'3 (4.5-11.0)
[2017-06-03] MEDS: insulin glargine (Lantus) pen - multi-dose SQ SCH (21:16)
[2017-06-04] VITALS: BP 110/45
[2017-06-04] MEDS: morphine/NS 5 mg/ml CADD 50 ML IV SCH ×12 (01:00→23:00)
[2017-06-04] MEDS: diltiazem 30mg tablet PO SCH ×4 (02:02→20:20)
[2017-06-04] MEDS: piperacillin/tazo 4.5gm/100ml 100 ML IV SCH ×4 (02:02→20:20)
[2017-06-04] MEDS ORDERED: VANCOMYCIN LEVEL IV NR (03:30)
[2017-06-04 05:29] LABS: BASOPHILS # (AUTO) 0.1 X10'3 (0-0.2); BASOPHILS % (AUTO) 0.6 % (0-1); EOSINOPHILS # (AUTO) 0.5 X10'3 (0-0.9); EOSINOPHILS % (AUTO) 5.6 % (0-6); HEMATOCRIT 25.2 % (35.0-45.0); HEMOGLOBIN 8.5 g/dl (12.0-16.0); LYMPHOCYTES # (AUTO) 1.4 X10'3 (1.1-4.8); LYMPHOCYTES % (AUTO) 15.5 % (21-51); MEAN CORPUSCULAR HEMOGLOBIN 25.7 PG (27.0-31.0); MEAN CORPUSCULAR HGB CONC 33.7 % (33.0-36.5); MEAN CORPUSCULAR VOLUME 76.1 FL (78-98); MEAN PLATELET VOLUME 7.9 FL (7.4-10.4); MONOCYTES # (AUTO) 0.7 X10'3 (0-0.9); NEUTROPHILS # (AUTO) 6.5 X10'3 (1.8-7.7); NEUTROPHILS % (AUTO) 70.3 % (42-75); PLATELET COUNT 293 X10'3 (140-440); RED BLOOD COUNT 3.31 X10'6 (4.20-5.60); RED CELL DISTRIBUTION WIDTH 14.9 % (11.5-14.5); WHITE BLOOD COUNT 9.2 X10'3 (4.5-11.0)
[2017-06-04 05:56] LABS: ALBUMIN 1.7 G/DL (3.4-5.0); ANION GAP 8 (8-16); BLOOD UREA NITROGEN 4 MG/DL (7-18); BUN/CREATININE RATIO 8.9 (6.6-38.0); CALCIUM 7.5 MG/DL (8.5-10.1); CHLORIDE 103 MMOL/L (99-107); CREATININE 0.45 MG/DL (0.40-0.90); GLUCOSE 90 MG/DL (70-104); MAGNESIUM 1.5 MG/DL (1.5-2.4); POTASSIUM 3.2 MMOL/L (3.5-5.1); SODIUM 139 MMOL/L (135-145); TOTAL CARBON DIOXIDE 28.1 MMOL/L (24-32); VANCOMYCIN,TROUGH 1.2 UG/ML (6.0-14.0); eGFR > 90 ML/MIN
[2017-06-04 06:41] VITALS: BP 125/51
[2017-06-04 07:12] LABS: INR 1.2 INR
[2017-06-04] MEDS: gabapentin 400mg capsule PO SCH ×3 (07:32→20:30)
[2017-06-04] MEDS: multivitamins, therapeutics tablet PO SCH (07:32)
[2017-06-04] MEDS: atorvastatin 20mg tablet PO SCH (07:33)
[2017-06-04] MEDS: amitriptyline 10mg tablet PO SCH (07:33)
[2017-06-04] MEDS: pantoprazole 40mg Tablet.DR PO SCH (07:34)
[2017-06-04] MEDS: apixaban 5mg tablet PO SCH ×2 (07:34→20:30)
[2017-06-04] MEDS: ferrous sulfate 325mg tablet PO SCH ×2 (07:34→20:21)
[2017-06-04] MEDS: lactobacillus rhamnosus 10,000 MMU CELLS/CAPSULE PO SCH ×2 (07:34→20:22)
[2017-06-04] MEDS: docusate sod 100mg capsule PO SCH ×2 (07:49→20:21)
[2017-06-04] MEDS: clopidogrel 75mg tablet PO SCH (07:54)
[2017-06-04] MEDS: potassium Cl 40MEQ/NS 500ml 500 ML IV PRN (07:55)
[2017-06-04] MEDS: K and/or MAG REPLACEMENT MC SCH (08:00)
[2017-06-04 11:00] VITALS: BP 117/49
[2017-06-04 19:00] VITALS: BP 122/48
[2017-06-04] MEDS: CADD PCA waste documentation MC SCH (20:06)
[2017-06-04 20:47] LABS: OCCULT BLOOD STOOL NEGATIVE (Neg)
[2017-06-04] MEDS: insulin glargine (Lantus) pen - multi-dose SQ SCH (21:38)
[2017-06-05] VITALS: BP 129/51
[2017-06-05] MEDS: morphine/NS 5 mg/ml CADD 50 ML IV SCH ×12 (01:00→23:00)
[2017-06-05] MEDS: diltiazem 30mg tablet PO SCH ×4 (02:15→20:22)
[2017-06-05] MEDS: piperacillin/tazo 4.5gm/100ml 100 ML IV SCH ×4 (02:15→20:22)
[2017-06-05 05:19] LABS: BASOPHILS # (AUTO) 0.1 X10'3 (0-0.2); BASOPHILS % (AUTO) 0.7 % (0-1); EOSINOPHILS # (AUTO) 0.6 X10'3 (0-0.9); EOSINOPHILS % (AUTO) 6.5 % (0-6); HEMATOCRIT 25.9 % (35.0-45.0); HEMOGLOBIN 8.7 g/dl (12.0-16.0); LYMPHOCYTES # (AUTO) 1.7 X10'3 (1.1-4.8); LYMPHOCYTES % (AUTO) 18.5 % (21-51); MEAN CORPUSCULAR HEMOGLOBIN 25.7 PG (27.0-31.0); MEAN CORPUSCULAR HGB CONC 33.8 % (33.0-36.5); MEAN CORPUSCULAR VOLUME 76.2 FL (78-98); MEAN PLATELET VOLUME 7.4 FL (7.4-10.4); MONOCYTES # (AUTO) 0.7 X10'3 (0-0.9); MONOCYTES % (AUTO) 7.4 % (2-12); NEUTROPHILS # (AUTO) 6.1 X10'3 (1.8-7.7); NEUTROPHILS % (AUTO) 66.9 % (42-75); PLATELET COUNT 391 X10'3 (140-440); RED CELL DISTRIBUTION WIDTH 15.7 % (11.5-14.5); WHITE BLOOD COUNT 9.1 X10'3 (4.5-11.0)
[2017-06-05 06:12] LABS: ANION GAP 8 (8-16); CHLORIDE 101 MMOL/L (99-107); MAGNESIUM 1.7 MG/DL (1.5-2.4); POTASSIUM 3.4 MMOL/L (3.5-5.1); SODIUM 138 MMOL/L (135-145); TOTAL CARBON DIOXIDE 28.8 MMOL/L (24-32)
[2017-06-05 07:47] VITALS: BP 133/50
[2017-06-05] MEDS: K and/or MAG REPLACEMENT MC SCH (08:00)
[2017-06-05] MEDS: docusate sod 100mg capsule PO SCH ×2 (08:00→20:00)
[2017-06-05] MEDS: potassium Cl 20 mEq SR tablet PO PRN ×3 (08:11→17:50)
[2017-06-05] MEDS: apixaban 5mg tablet PO SCH ×2 (08:11→20:22)
[2017-06-05] MEDS: amitriptyline 10mg tablet PO SCH (08:11)
[2017-06-05] MEDS: atorvastatin 20mg tablet PO SCH (08:12)
[2017-06-05] MEDS: ferrous sulfate 325mg tablet PO SCH (08:12)
[2017-06-05] MEDS: lactobacillus rhamnosus 10,000 MMU CELLS/CAPSULE PO SCH ×2 (08:14→20:22)
[2017-06-05] MEDS: gabapentin 400mg capsule PO SCH ×3 (08:15→21:23)
[2017-06-05] MEDS: pantoprazole 40mg Tablet.DR PO SCH (08:15)
[2017-06-05] MEDS: clopidogrel 75mg tablet PO SCH (08:16)
[2017-06-05] MEDS: multivitamins, therapeutics tablet PO SCH (08:16)
[2017-06-05 11:07] VITALS: BP 115/52
[2017-06-05] MEDS: insulin Lispro (HumaLOG) vial - multi-dose SQ SCH ×2 (12:54→17:44)
[2017-06-05 19:00] VITALS: BP 115/51
[2017-06-05] MEDS: ferrous sulfate ER tablet 140 MG TABLET.ER PO SCH (20:22)
[2017-06-05] MEDS: insulin glargine (Lantus) pen - multi-dose SQ SCH (21:23)
[2017-06-06] VITALS: BP 123/50
[2017-06-06] MEDS: morphine/NS 5 mg/ml CADD 50 ML IV SCH ×12 (01:00→23:00)
[2017-06-06] MEDS: piperacillin/tazo 4.5gm/100ml 100 ML IV SCH ×4 (02:01→19:34)
[2017-06-06] MEDS: diltiazem 30mg tablet PO SCH ×4 (02:01→19:35)
[2017-06-06 05:25] LABS: BASOPHILS # (AUTO) 0.1 X10'3 (0-0.2); BASOPHILS % (AUTO) 0.6 % (0-1); EOSINOPHILS # (AUTO) 0.5 X10'3 (0-0.9); EOSINOPHILS % (AUTO) 5.4 % (0-6); HEMATOCRIT 27.1 % (35.0-45.0); HEMOGLOBIN 9.3 g/dl (12.0-16.0); LYMPHOCYTES # (AUTO) 1.6 X10'3 (1.1-4.8); LYMPHOCYTES % (AUTO) 17.8 % (21-51); MEAN CORPUSCULAR HGB CONC 34.3 % (33.0-36.5); MEAN CORPUSCULAR VOLUME 75.7 FL (78-98); MEAN PLATELET VOLUME 7.3 FL (7.4-10.4); MONOCYTES # (AUTO) 0.6 X10'3 (0-0.9); NEUTROPHILS # (AUTO) 6.3 X10'3 (1.8-7.7); NEUTROPHILS % (AUTO) 69.2 % (42-75); PLATELET COUNT 425 X10'3 (140-440); RED BLOOD COUNT 3.58 X10'6 (4.20-5.60); RED CELL DISTRIBUTION WIDTH 15.8 % (11.5-14.5)
[2017-06-06] MEDS: docusate sod 100mg capsule PO SCH ×2 (08:00→19:35)
[2017-06-06] MEDS: K and/or MAG REPLACEMENT MC SCH (08:00)
[2017-06-06 08:02] VITALS: BP 113/42
[2017-06-06] MEDS: multivitamins, therapeutics tablet PO SCH (08:29)
[2017-06-06] MEDS: lactobacillus rhamnosus 10,000 MMU CELLS/CAPSULE PO SCH ×2 (08:29→19:34)
[2017-06-06] MEDS: pantoprazole 40mg Tablet.DR PO SCH (08:29)
[2017-06-06] MEDS: atorvastatin 20mg tablet PO SCH (08:30)
[2017-06-06] MEDS: ferrous sulfate ER tablet 140 MG TABLET.ER PO SCH ×2 (08:30→19:35)
[2017-06-06] MEDS: amitriptyline 10mg tablet PO SCH (08:30)
[2017-06-06] MEDS: apixaban 5mg tablet PO SCH ×2 (08:30→19:35)
[2017-06-06] MEDS: clopidogrel 75mg tablet PO SCH (08:30)
[2017-06-06] MEDS: gabapentin 400mg capsule PO SCH ×3 (08:31→21:17)
[2017-06-06 11:38] VITALS: BP 120/52
[2017-06-06 19:00] VITALS: BP 126/55
[2017-06-06] MEDS: insulin glargine (Lantus) pen - multi-dose SQ SCH (21:19)
[2017-06-07] VITALS: BP 131/47
[2017-06-07] MEDS: morphine/NS 5 mg/ml CADD 50 ML IV SCH ×11 (01:00→23:00)
[2017-06-07] MEDS: diltiazem 30mg tablet PO SCH ×4 (02:19→19:47)
[2017-06-07] MEDS: piperacillin/tazo 4.5gm/100ml 100 ML IV SCH ×4 (02:19→19:47)
[2017-06-07 03:57] LABS: BASOPHILS % (AUTO) 0.6 % (0-1); EOSINOPHILS # (AUTO) 0.4 X10'3 (0-0.9); EOSINOPHILS % (AUTO) 4.6 % (0-6); HEMATOCRIT 26.9 % (35.0-45.0); HEMOGLOBIN 9.1 g/dl (12.0-16.0); LYMPHOCYTES # (AUTO) 1.5 X10'3 (1.1-4.8); LYMPHOCYTES % (AUTO) 17.5 % (21-51); MEAN CORPUSCULAR HEMOGLOBIN 25.6 PG (27.0-31.0); MEAN CORPUSCULAR HGB CONC 33.7 % (33.0-36.5); MEAN CORPUSCULAR VOLUME 75.9 FL (78-98); MONOCYTES # (AUTO) 0.6 X10'3 (0-0.9); NEUTROPHILS # (AUTO) 6.2 X10'3 (1.8-7.7); NEUTROPHILS % (AUTO) 70.3 % (42-75); PLATELET COUNT 479 X10'3 (140-440); RED BLOOD COUNT 3.54 X10'6 (4.20-5.60); WHITE BLOOD COUNT 8.9 X10'3 (4.5-11.0)
[2017-06-07 04:08] LABS: ALBUMIN 1.9 G/DL (3.4-5.0); ANION GAP 6 (8-16); BLOOD UREA NITROGEN 8 MG/DL (7-18); BUN/CREATININE RATIO 14.8 (6.6-38.0); CALCIUM 8.5 MG/DL (8.5-10.1); CHLORIDE 100 MMOL/L (99-107); CREATININE 0.54 MG/DL (0.40-0.90); GLUCOSE 123 MG/DL (70-104); POTASSIUM 3.7 MMOL/L (3.5-5.1); SODIUM 137 MMOL/L (135-145); TOTAL CARBON DIOXIDE 31.2 MMOL/L (24-32); eGFR > 90 ML/MIN
[2017-06-07] MEDS: pantoprazole 40mg Tablet.DR PO SCH (07:51)
[2017-06-07] MEDS: amitriptyline 10mg tablet PO SCH (07:52)
[2017-06-07] MEDS: lactobacillus rhamnosus 10,000 MMU CELLS/CAPSULE PO SCH ×2 (07:52→19:47)
[2017-06-07] MEDS: apixaban 5mg tablet PO SCH ×2 (07:53→19:47)
[2017-06-07] MEDS: ferrous sulfate ER tablet 140 MG TABLET.ER PO SCH ×2 (07:53→19:48)
[2017-06-07] MEDS: atorvastatin 20mg tablet PO SCH (07:53)
[2017-06-07] MEDS: multivitamins, therapeutics tablet PO SCH (07:53)
[2017-06-07] MEDS: clopidogrel 75mg tablet PO SCH (07:53)
[2017-06-07] MEDS: gabapentin 400mg capsule PO SCH ×3 (07:54→21:07)
[2017-06-07] MEDS: K and/or MAG REPLACEMENT MC SCH (08:00)
[2017-06-07] MEDS: docusate sod 100mg capsule PO SCH ×2 (08:00→19:47)
[2017-06-07 11:00] VITALS: BP 118/50
[2017-06-07 12:08] VITALS: BP 111/70
[2017-06-07 19:10] VITALS: BP 126/56
[2017-06-07] MEDS: insulin glargine (Lantus) pen - multi-dose SQ SCH (21:49)
[2017-06-08] MEDS: morphine/NS 5 mg/ml CADD 50 ML IV SCH ×3 (00:42→05:00)
[2017-06-08] MEDS: piperacillin/tazo 4.5gm/100ml 100 ML IV SCH ×4 (02:20→19:32)
[2017-06-08] MEDS: diltiazem 30mg tablet PO SCH ×4 (02:20→19:33)
[2017-06-08] MEDS: pantoprazole 40mg Tablet.DR PO SCH (07:39)
[2017-06-08 08:00] VITALS: BP 121/79
[2017-06-08] MEDS: docusate sod 100mg capsule PO SCH ×2 (08:00→19:34)
[2017-06-08] MEDS: K and/or MAG REPLACEMENT MC SCH (08:00)
[2017-06-08] MEDS: gabapentin 400mg capsule PO SCH ×3 (08:24→23:05)
[2017-06-08] MEDS: apixaban 5mg tablet PO SCH ×2 (08:25→19:34)
[2017-06-08] MEDS: amitriptyline 10mg tablet PO SCH (08:25)
[2017-06-08] MEDS: atorvastatin 20mg tablet PO SCH (08:25)
[2017-06-08] MEDS: clopidogrel 75mg tablet PO SCH (08:25)
[2017-06-08] MEDS: ferrous sulfate ER tablet 140 MG TABLET.ER PO SCH ×2 (08:25→19:33)
[2017-06-08] MEDS: multivitamins, therapeutics tablet PO SCH (08:42)
[2017-06-08] MEDS: lactobacillus rhamnosus 10,000 MMU CELLS/CAPSULE PO SCH ×2 (08:42→19:32)
[2017-06-08 11:16] VITALS: BP 125/46
[2017-06-08] MEDS: CADD PCA waste documentation MC SCH (11:33)
[2017-06-08] MEDS: oxyCODONE/APAP 10/325mg tablet PO PRN ×2 (14:33→23:07)
[2017-06-08] MEDS: HYDROcodone/acetaminophen 10/325mg tab PO PRN (17:14)
[2017-06-08 19:00] VITALS: BP 120/45
[2017-06-08] MEDS: insulin Lispro (HumaLOG) vial - multi-dose SQ SCH (19:56)
[2017-06-08] MEDS: insulin glargine (Lantus) pen - multi-dose SQ SCH (23:04)
[2017-06-08 23:08] VITALS: BP 132/47
[2017-06-09] MEDS: piperacillin/tazo 4.5gm/100ml 100 ML IV SCH ×2 (02:17→07:38)
[2017-06-09] MEDS: diltiazem 30mg tablet PO SCH ×2 (02:17→07:31)
[2017-06-09] MEDS: HYDROcodone/acetaminophen 10/325mg tab PO PRN ×2 (03:39→07:30)
[2017-06-09] MEDS: oxyCODONE/APAP 10/325mg tablet PO PRN ×2 (05:10→12:44)
[2017-06-09 07:30] VITALS: BP 120/50
[2017-06-09] MEDS: gabapentin 400mg capsule PO SCH ×2 (07:30→12:36)
[2017-06-09] MEDS: amitriptyline 10mg tablet PO SCH (07:30)
[2017-06-09] MEDS: lactobacillus rhamnosus 10,000 MMU CELLS/CAPSULE PO SCH (07:31)
[2017-06-09] MEDS: pantoprazole 40mg Tablet.DR PO SCH (07:31)
[2017-06-09] MEDS: multivitamins, therapeutics tablet PO SCH (07:31)
[2017-06-09] MEDS: clopidogrel 75mg tablet PO SCH (07:31)
[2017-06-09] MEDS: atorvastatin 20mg tablet PO SCH (07:31)
[2017-06-09] MEDS: ferrous sulfate ER tablet 140 MG TABLET.ER PO SCH (07:31)
[2017-06-09] MEDS: apixaban 5mg tablet PO SCH (07:31)
[2017-06-09] MEDS: docusate sod 100mg capsule PO SCH (07:41)
[2017-06-09] MEDS: K and/or MAG REPLACEMENT MC SCH (07:50)
[2017-06-09 12:18] VITALS: BP 118/51
== END 2017-06-09 13:34 | disposition home health service (06) | DRG 253 ==
LOC: ER 12:31 → ED HOLD 14:51 → MED 3N 18:02 → PACU 05-31 11:35 → ICU 2S 05-31 17:11 → SUR 3N 06-02 15:11
PROVIDERS: ADMIT Internal Medicine; ATTEND Internal Medicine
PROC: 06BP3ZZ Excision of Right Saphenous Vein, Percutaneous Approach (ICD-10-PCS; 2017-05-31)
PROC: BQ3LYZZ Magnetic Resonance Imaging (MRI) of Right Foot using Other Contrast (ICD-10-PCS; 2017-05-31)
PROC: 041K09Q Bypass Right Femoral Artery to Lower Extremity Artery with Autologous Venous Tissue, Open Approach (ICD-10-PCS; principal; 2017-05-31 12:28)
PROC: 30233N1 Transfusion of Nonautologous Red Blood Cells into Peripheral Vein, Percutaneous Approach (ICD-10-PCS; 2017-06-03)
DX: E11.52 Type 2 diabetes mellitus with diabetic peripheral angiopathy with gangrene (principal); E11.42 Type 2 diabetes mellitus with diabetic polyneuropathy; E11.69 Type 2 diabetes mellitus with other specified complication; E11.65 Type 2 diabetes mellitus with hyperglycemia; D62 Acute posthemorrhagic anemia; M86.8X8 Other osteomyelitis, other site; E87.6 Hypokalemia; E78.5 Hyperlipidemia, unspecified; F17.210 Nicotine dependence, cigarettes, uncomplicated; G89.29 Other chronic pain; I10 Essential (primary) hypertension; I77.1 Stricture of artery; I99.8 Other disorder of circulatory system; K21.9 Gastro-esophageal reflux disease without esophagitis; L03.031 Cellulitis of right toe; Z80.1 Family history of malignant neoplasm of trachea, bronchus and lung; Z89.512 Acquired absence of left leg below knee; Z88.1 Allergy status to other antibiotic agents; Z88.8 Allergy status to other drugs, medicaments and biological substances; Z90.49 Acquired absence of other specified parts of digestive tract; Z79.899 Other long term (current) drug therapy; Z79.4 Long term (current) use of insulin
CPT/HCPCS: 36569; 93306; 96374; 99285; Z7506; 36415; 71045; 73720; 76937; 80047; 80048; 80051; 80053; 80061; 80202; 82272; 82948; 83036; 83605; 83735; 84145; 84484; 85025; 85027; 85610; 85730; 86885; 86900; 86901; 86920; 87040; 87070; 93005; 93971; 97110; 97161; 97530; A6212; A6213; A6253; A6255; A6257; A6258; A6402; A6446; A6449; A7000; A9579; C1758; J1200; J1644; J1815; J2001; J2250; J2270; J2543; J2704; J2710; J2765; J3010; J3370; J3480; J3490; J7030; J7120; J8501; P9016; P9045

== ENCOUNTER 2017-06-19 15:29 | Emergency (ER) | payer BC ==
[~2017-06-19] VITALS: Ht 157.5 cm; Wt 63.6 kg
[~2017-06-19 15:29] MED LIST changes: +AMIT10TA6 PO; +ATOR20TA66 PO; -CLIN300C11; -DILT30TA5 PO; -GABA-534 PO; +GABA800T2 PO; +LIRA0.6P SUBCUT; -SITA100T11 PO
[2017-06-19] MEDS ORDERED: ondansetron 4mg rapidly disintigrating tab PO ONE (16:30)
[2017-06-19] MEDS ORDERED: morphine 4 MG/ML inj SYRINge IM ONE (16:30)
[2017-06-19] MEDS ORDERED: morphine 4 MG/ML inj SYRINge IV ONE (16:50)
[2017-06-19 17:41] VITALS: BP 124/72
== END 2017-06-19 17:42 | disposition home or self-care (01) ==
LOC: ER 15:30
DX: S80.11XA Contusion of right lower leg, initial encounter (principal); M79.674 Pain in right toe(s); I70.211 Atherosclerosis of native arteries of extremities with intermittent claudication, right leg; I10 Essential (primary) hypertension; E11.9 Type 2 diabetes mellitus without complications; G89.29 Other chronic pain; Z90.49 Acquired absence of other specified parts of digestive tract; Z98.890 Other specified postprocedural states; Z56.0 Unemployment, unspecified; Z88.8 Allergy status to other drugs, medicaments and biological substances; Z79.4 Long term (current) use of insulin; Z79.899 Other long term (current) drug therapy; X58.XXXA Exposure to other specified factors, initial encounter; Y93.89 Activity, other specified; Y92.89 Other specified places as the place of occurrence of the external cause; Y99.8 Other external cause status
CPT/HCPCS: 96374; 99284; A6446; J2270

== ENCOUNTER 2017-06-21 15:53 | Inpatient (IN) | payer BC ==
[~2017-06-21] VITALS: Ht 160 cm; Wt 63.6 kg
[2017-06-21] MEDS ORDERED: morphine 4 MG/ML inj SYRINge IV ONE (20:15)
[2017-06-21 20:27] LABS: BASOPHILS # (AUTO) 0.1 X10'3 (0-0.2); BASOPHILS % (AUTO) 0.9 % (0-1); EOSINOPHILS # (AUTO) 0.3 X10'3 (0-0.9); EOSINOPHILS % (AUTO) 4.5 % (0-6); HEMATOCRIT 31.8 % (35.0-45.0); HEMOGLOBIN 10.8 g/dl (12.0-16.0); LYMPHOCYTES # (AUTO) 1.6 X10'3 (1.1-4.8); LYMPHOCYTES % (AUTO) 24.3 % (21-51); MEAN CORPUSCULAR HEMOGLOBIN 25.7 PG (27.0-31.0); MEAN CORPUSCULAR HGB CONC 33.8 % (33.0-36.5); MEAN CORPUSCULAR VOLUME 75.9 FL (78-98); MEAN PLATELET VOLUME 6.8 FL (7.4-10.4); MONOCYTES # (AUTO) 0.5 X10'3 (0-0.9); MONOCYTES % (AUTO) 7.1 % (2-12); NEUTROPHILS # (AUTO) 4.2 X10'3 (1.8-7.7); NEUTROPHILS % (AUTO) 63.2 % (42-75); PLATELET COUNT 400 X10'3 (140-440); RED BLOOD COUNT 4.19 X10'6 (4.20-5.60); RED CELL DISTRIBUTION WIDTH 17.1 % (11.5-14.5); WHITE BLOOD COUNT 6.7 X10'3 (4.5-11.0)
[2017-06-21 20:39] LABS: INR 1.1 INR; PARTIAL THROMBOPLASTIN TIME 25 SECONDS (22-32); PROTHROMBIN TIME 10.9 SECONDS (9.0-12.0)
[2017-06-21 20:41] LABS: ALANINE AMINOTRANSFERASE 30 U/L (12-78); ALBUMIN/GLOBULIN RATIO 0.8 (1.1-1.5); ALKALINE PHOSPHATASE 135 IU/L (46-116); ANION GAP 10 (8-16); ASPARTATE AMINO TRANSFERASE 30 U/L (10-37); BILIRUBIN,TOTAL 0.4 MG/DL (0.1-1.0); BLOOD UREA NITROGEN 8 MG/DL (7-18); BUN/CREATININE RATIO 12.5 (6.6-38.0); CHLORIDE 102 MMOL/L (99-107); CREATININE 0.64 MG/DL (0.40-0.90); GLUCOSE 202 MG/DL (70-104); SODIUM 141 MMOL/L (135-145); TOTAL CARBON DIOXIDE 28.9 MMOL/L (24-32); TOTAL PROTEIN 6.9 G/DL (6.4-8.2); eGFR > 90 ML/MIN
[2017-06-21 20:46] LABS: POTASSIUM 2.7 MMOL/L (3.5-5.1)
[2017-06-21] MEDS ORDERED: potassium Cl 10 mEq/100mL bag IV ONE (21:10)
[2017-06-21] MEDS ORDERED: potassium 10mEq/100ml NS w/LIDOcaine (10mg/bag) IV ONE (21:15)
[2017-06-21] MEDS ORDERED: GABA300C PO (21:23)
[2017-06-21] MEDS ORDERED: oxyCODONE/APAP 10/325mg tablet PO PRN (21:30)
[2017-06-21] MEDS ORDERED: ondansetron/PF 4mg/2ml inj IV PRN (22:10)
[2017-06-21] MEDS ORDERED: acetaminophen 325mg tablet PO PRN (22:10)
[2017-06-21] MEDS ORDERED: glucagon, human recombinant 1mg kit SUBCUT PRN (22:20)
[2017-06-21] MEDS ORDERED: dextrose ORAL solution 15 GM/59 ML bottle PO PRN ×2 (22:20)
[2017-06-21] MEDS ORDERED: dextrose 50%-water 50ml dispensing syringe IV PRN ×2 (22:20)
[2017-06-21] MEDS ORDERED: MESSAGE TO PHARMACY PO ONE (22:20)
[2017-06-21] MEDS ORDERED: metoclopramide 5 mg/ml inj IV PRN (22:20)
[2017-06-21] MEDS: normal saline 1000ml 1,000 ML IV SCH (22:31)
[2017-06-21] MEDS ORDERED: potassium Cl 40MEQ/NS 500ml 500 ML IV PRN ×2 (23:05)
[2017-06-21] MEDS ORDERED: potassium Cl 20 mEq SR tablet PO PRN (23:05)
[2017-06-21] MEDS: potassium Cl 20 mEq SR tablet PO PRN (23:30)
[2017-06-22] VITALS (18 sets, daily range): BP systolic 130–158; BP diastolic 57–74
[2017-06-22] MEDS: gabapentin 300mg capsule PO SCH ×3 (01:04→21:03)
[2017-06-22] MEDS ORDERED: piperacillin/tazo 3.375gm/50ml 50 ML IV SCH (02:00)
[2017-06-22 07:01] LABS: BASOPHILS # (AUTO) 0.1 X10'3 (0-0.2); BASOPHILS % (AUTO) 1.4 % (0-1); EOSINOPHILS # (AUTO) 0.3 X10'3 (0-0.9); EOSINOPHILS % (AUTO) 6.3 % (0-6); HEMATOCRIT 29.7 % (35.0-45.0); LYMPHOCYTES # (AUTO) 1.4 X10'3 (1.1-4.8); LYMPHOCYTES % (AUTO) 24.9 % (21-51); MEAN CORPUSCULAR HEMOGLOBIN 25.8 PG (27.0-31.0); MEAN CORPUSCULAR HGB CONC 33.6 % (33.0-36.5); MEAN CORPUSCULAR VOLUME 76.6 FL (78-98); MEAN PLATELET VOLUME 7.3 FL (7.4-10.4); MONOCYTES # (AUTO) 0.5 X10'3 (0-0.9); MONOCYTES % (AUTO) 8.8 % (2-12); NEUTROPHILS # (AUTO) 3.2 X10'3 (1.8-7.7); NEUTROPHILS % (AUTO) 58.6 % (42-75); PLATELET COUNT 367 X10'3 (140-440); RED BLOOD COUNT 3.88 X10'6 (4.20-5.60); RED CELL DISTRIBUTION WIDTH 18.2 % (11.5-14.5); WHITE BLOOD COUNT 5.4 X10'3 (4.5-11.0)
[2017-06-22 07:05] LABS: ALBUMIN 2.7 G/DL (3.4-5.0); ANION GAP 9 (8-16); BLOOD UREA NITROGEN 6 MG/DL (7-18); BUN/CREATININE RATIO 12.5 (6.6-38.0); CALCIUM 8.6 MG/DL (8.5-10.1); CHLORIDE 108 MMOL/L (99-107); CREATININE 0.48 MG/DL (0.40-0.90); GLUCOSE 145 MG/DL (70-104); MAGNESIUM 1.7 MG/DL (1.5-2.4); POTASSIUM 3.2 MMOL/L (3.5-5.1); SODIUM 144 MMOL/L (135-145); TOTAL CARBON DIOXIDE 27.5 MMOL/L (24-32); eGFR > 90 ML/MIN
[2017-06-22] MEDS: amitriptyline 10mg tablet PO SCH (08:00)
[2017-06-22] MEDS: HYDROcodone/acetaminophen 10/325mg tab PO PRN ×3 (10:00→21:09)
[2017-06-22] MEDS: atorvastatin 20mg tablet PO SCH (10:01)
[2017-06-22] MEDS: pantoprazole 40mg Tablet.DR PO SCH (10:01)
[2017-06-22] MEDS: amLODIPine 5mg tablet PO SCH (10:02)
[2017-06-22] MEDS: morphine 4 MG/ML inj SYRINge IV PRN ×2 (10:03→20:17)
[2017-06-22] MEDS: vancomycin/NS 1 GM ADD-VANTAGE 250 ML IV SCH ×2 (11:00→23:40)
[2017-06-22] MEDS ORDERED: propofol inj 20 ML IV ONE (13:08)
[2017-06-22] MEDS ORDERED: fentaNYL /PF 50mcg/ml 5ml ampule ONE (13:10)
[2017-06-22] MEDS ORDERED: MIDAZolam 5mg/ml 2ml vial ONE (13:10)
[2017-06-22] MEDS ORDERED: LIDOcaine 2% 5ml jelly ONE (13:15)
[2017-06-22] MEDS ORDERED: sevoflurane 250ml liquid IH ONE (13:35)
[2017-06-22] MEDS ORDERED: vancomycin 1,000mg inj ONE (14:00)
[2017-06-22] MEDS: ringers solution, lacted 1,000 ML IV SCH ×2 (14:04→16:12)
[2017-06-22] MEDS ORDERED: proMETHazine 25mg rectal suppository RC PRN (14:05)
[2017-06-22] MEDS ORDERED: HYDROmorphone inj. 0.5 MG/0.5 ML DISP.SYRIN IV PRN ×2 (14:05)
[2017-06-22] MEDS ORDERED: fentaNYL/PF 50MCG/1 ML 2ML syringe IV PRN (14:05)
[2017-06-22] MEDS ORDERED: proCHLORperazine 10 MG/2 ml inj IV PRN (14:05)
[2017-06-22] MEDS: acetaminophen 1,000mg/100ml IV 100 ML IV PRN ×4 (14:51→16:10)
[2017-06-22] MEDS: fentaNYL/PF 50MCG/1 ML 2ML syringe IV PRN ×3 (14:52→16:05)
[2017-06-22] MEDS: normal saline 1000ml 1,000 ML IV SCH (16:29)
[2017-06-22] MEDS: piperacillin/tazo 3.375gm/50ml 50 ML IV SCH ×3 (17:25→23:11)
[2017-06-22] MEDS: HYDROmorphone/NS 1 mg/ml CADD 50 ML IV SCH ×2 (23:00→23:08)
[2017-06-22] MEDS: insulin glargine (Lantus) pen - multi-dose SQ SCH (23:36)
[2017-06-23] MEDS: HYDROmorphone/NS 1 mg/ml CADD 50 ML IV SCH ×12 (01:00→23:00)
[2017-06-23] MEDS: gabapentin 300mg capsule PO SCH ×3 (01:26→15:39)
[2017-06-23] MEDS: normal saline 1000ml 1,000 ML IV SCH ×2 (02:46→11:09)
[2017-06-23 04:00] VITALS: BP 120/48
[2017-06-23] MEDS: piperacillin/tazo 3.375gm/50ml 50 ML IV SCH (05:08)
[2017-06-23 06:16] LABS: BASOPHILS % (AUTO) 0.8 % (0-1); EOSINOPHILS # (AUTO) 0.3 X10'3 (0-0.9); EOSINOPHILS % (AUTO) 5.8 % (0-6); HEMATOCRIT 24.3 % (35.0-45.0); HEMOGLOBIN 8.3 g/dl (12.0-16.0); LYMPHOCYTES # (AUTO) 1.7 X10'3 (1.1-4.8); LYMPHOCYTES % (AUTO) 32.5 % (21-51); MEAN CORPUSCULAR HEMOGLOBIN 25.9 PG (27.0-31.0); MEAN CORPUSCULAR HGB CONC 34.1 % (33.0-36.5); MEAN CORPUSCULAR VOLUME 75.9 FL (78-98); MEAN PLATELET VOLUME 7.5 FL (7.4-10.4); MONOCYTES # (AUTO) 0.4 X10'3 (0-0.9); MONOCYTES % (AUTO) 7.2 % (2-12); NEUTROPHILS # (AUTO) 2.8 X10'3 (1.8-7.7); NEUTROPHILS % (AUTO) 53.7 % (42-75); PLATELET COUNT 314 X10'3 (140-440); RED BLOOD COUNT 3.21 X10'6 (4.20-5.60); RED CELL DISTRIBUTION WIDTH 17.8 % (11.5-14.5); WHITE BLOOD COUNT 5.2 X10'3 (4.5-11.0)
[2017-06-23 06:30] LABS: ALBUMIN 2.4 G/DL (3.4-5.0); ANION GAP 8 (8-16); BLOOD UREA NITROGEN 5 MG/DL (7-18); BUN/CREATININE RATIO 12.5 (6.6-38.0); CALCIUM 8.1 MG/DL (8.5-10.1); CHLORIDE 107 MMOL/L (99-107); GLUCOSE 135 MG/DL (70-104); MAGNESIUM 1.5 MG/DL (1.5-2.4); SODIUM 143 MMOL/L (135-145); eGFR > 90 ML/MIN
[2017-06-23 06:36] LABS: POTASSIUM 2.9 MMOL/L (3.5-5.1)
[2017-06-23 07:49] VITALS: BP 143/48
[2017-06-23] MEDS: pantoprazole 40mg Tablet.DR PO SCH (07:51)
[2017-06-23] MEDS: amitriptyline 10mg tablet PO SCH (07:51)
[2017-06-23] MEDS: atorvastatin 20mg tablet PO SCH (07:52)
[2017-06-23] MEDS: amLODIPine 5mg tablet PO SCH (07:52)
[2017-06-23] MEDS: potassium Cl 20 mEq SR tablet PO PRN ×3 (07:53→16:05)
[2017-06-23 12:22] VITALS: BP 111/47
[2017-06-23 19:00] VITALS: BP 135/56
[2017-06-23] MEDS: insulin glargine (Lantus) pen - multi-dose SQ SCH (21:00)
[2017-06-23] MEDS ORDERED: VANCOMYCIN LEVEL IV NR (22:30)
[2017-06-24] VITALS: BP 142/66
[2017-06-24] MEDS: gabapentin 300mg capsule PO SCH ×3 (00:12→16:42)
[2017-06-24] MEDS: HYDROmorphone/NS 1 mg/ml CADD 50 ML IV SCH ×12 (01:00→23:00)
[2017-06-24] MEDS: normal saline 1000ml 1,000 ML IV SCH ×2 (03:22→17:52)
[2017-06-24 07:30] VITALS: BP 141/65
[2017-06-24 08:02] LABS: BASOPHILS % (AUTO) 0.5 % (0-1); EOSINOPHILS # (AUTO) 0.3 X10'3 (0-0.9); EOSINOPHILS % (AUTO) 4.6 % (0-6); HEMOGLOBIN 8.3 g/dl (12.0-16.0); LYMPHOCYTES # (AUTO) 1.8 X10'3 (1.1-4.8); LYMPHOCYTES % (AUTO) 28.4 % (21-51); MEAN CORPUSCULAR HEMOGLOBIN 25.8 PG (27.0-31.0); MEAN CORPUSCULAR HGB CONC 33.3 % (33.0-36.5); MEAN CORPUSCULAR VOLUME 77.6 FL (78-98); MEAN PLATELET VOLUME 7.4 FL (7.4-10.4); MONOCYTES # (AUTO) 0.5 X10'3 (0-0.9); MONOCYTES % (AUTO) 7.6 % (2-12); NEUTROPHILS # (AUTO) 3.7 X10'3 (1.8-7.7); NEUTROPHILS % (AUTO) 58.9 % (42-75); PLATELET COUNT 315 X10'3 (140-440); RED BLOOD COUNT 3.23 X10'6 (4.20-5.60); RED CELL DISTRIBUTION WIDTH 18.2 % (11.5-14.5); WHITE BLOOD COUNT 6.3 X10'3 (4.5-11.0)
[2017-06-24 08:03] LABS: ALBUMIN 2.5 G/DL (3.4-5.0); ANION GAP 8 (8-16); BLOOD UREA NITROGEN 6 MG/DL (7-18); BUN/CREATININE RATIO 13.6 (6.6-38.0); CALCIUM 8.6 MG/DL (8.5-10.1); CHLORIDE 106 MMOL/L (99-107); CREATININE 0.44 MG/DL (0.40-0.90); GLUCOSE 190 MG/DL (70-104); MAGNESIUM 1.5 MG/DL (1.5-2.4); POTASSIUM 4.1 MMOL/L (3.5-5.1); SODIUM 142 MMOL/L (135-145); TOTAL CARBON DIOXIDE 28.5 MMOL/L (24-32); eGFR > 90 ML/MIN
[2017-06-24] MEDS: atorvastatin 20mg tablet PO SCH (08:11)
[2017-06-24] MEDS: amitriptyline 10mg tablet PO SCH (08:11)
[2017-06-24] MEDS: pantoprazole 40mg Tablet.DR PO SCH (08:11)
[2017-06-24] MEDS: amLODIPine 5mg tablet PO SCH (08:12)
[2017-06-24 11:00] VITALS: BP 139/62
[2017-06-24] MEDS: insulin Lispro (HumaLOG) vial - multi-dose SQ SCH ×2 (14:25→19:33)
[2017-06-24] MEDS: piperacillin/tazo 3.375gm/50ml 50 ML IV SCH ×2 (15:11→19:35)
[2017-06-24 19:00] VITALS: BP 115/54
[2017-06-24] MEDS: insulin glargine (Lantus) pen - multi-dose SQ SCH (21:58)
[2017-06-25] VITALS: BP 142/57
[2017-06-25] MEDS: gabapentin 300mg capsule PO SCH ×4 (00:47→23:56)
[2017-06-25] MEDS: HYDROmorphone/NS 1 mg/ml CADD 50 ML IV SCH ×12 (01:00→23:00)
[2017-06-25] MEDS: piperacillin/tazo 3.375gm/50ml 50 ML IV SCH ×4 (02:12→19:38)
[2017-06-25 03:57] LABS: BASOPHILS % (AUTO) 0.7 % (0-1); EOSINOPHILS # (AUTO) 0.3 X10'3 (0-0.9); EOSINOPHILS % (AUTO) 5.3 % (0-6); HEMATOCRIT 24.5 % (35.0-45.0); HEMOGLOBIN 8.4 g/dl (12.0-16.0); LYMPHOCYTES # (AUTO) 1.6 X10'3 (1.1-4.8); LYMPHOCYTES % (AUTO) 24.3 % (21-51); MEAN CORPUSCULAR HEMOGLOBIN 26.2 PG (27.0-31.0); MEAN CORPUSCULAR HGB CONC 34.1 % (33.0-36.5); MEAN CORPUSCULAR VOLUME 76.9 FL (78-98); MEAN PLATELET VOLUME 7.7 FL (7.4-10.4); MONOCYTES # (AUTO) 0.5 X10'3 (0-0.9); MONOCYTES % (AUTO) 7.4 % (2-12); NEUTROPHILS % (AUTO) 62.3 % (42-75); PLATELET COUNT 299 X10'3 (140-440); RED BLOOD COUNT 3.19 X10'6 (4.20-5.60); RED CELL DISTRIBUTION WIDTH 17.7 % (11.5-14.5); WHITE BLOOD COUNT 6.4 X10'3 (4.5-11.0)
[2017-06-25 04:08] LABS: ALBUMIN 2.5 G/DL (3.4-5.0); ANION GAP 6 (8-16); BLOOD UREA NITROGEN 5 MG/DL (7-18); BUN/CREATININE RATIO 10.2 (6.6-38.0); CALCIUM 8.6 MG/DL (8.5-10.1); CHLORIDE 105 MMOL/L (99-107); CREATININE 0.49 MG/DL (0.40-0.90); GLUCOSE 166 MG/DL (70-104); MAGNESIUM 1.4 MG/DL (1.5-2.4); POTASSIUM 3.5 MMOL/L (3.5-5.1); SODIUM 141 MMOL/L (135-145); TOTAL CARBON DIOXIDE 29.8 MMOL/L (24-32); eGFR > 90 ML/MIN
[2017-06-25 07:19] VITALS: BP 147/60
[2017-06-25] MEDS: amitriptyline 10mg tablet PO SCH (08:14)
[2017-06-25] MEDS: normal saline 1000ml 1,000 ML IV SCH ×2 (08:14→23:56)
[2017-06-25] MEDS: pantoprazole 40mg Tablet.DR PO SCH (08:14)
[2017-06-25] MEDS: atorvastatin 20mg tablet PO SCH (08:14)
[2017-06-25] MEDS: amLODIPine 5mg tablet PO SCH (08:14)
[2017-06-25] MEDS: insulin Lispro (HumaLOG) vial - multi-dose SQ SCH ×3 (08:48→19:36)
[2017-06-25 11:00] VITALS: BP 108/52
[2017-06-25] MEDS: insulin glargine (Lantus) pen - multi-dose SQ SCH (21:21)
[2017-06-25 23:30] VITALS: BP 128/71
[2017-06-25] MEDS: diphenhydrAMINE 25mg capsule PO PRN (23:56)
[2017-06-26] MEDS: HYDROmorphone/NS 1 mg/ml CADD 50 ML IV SCH ×12 (01:00→23:00)
[2017-06-26] MEDS: piperacillin/tazo 3.375gm/50ml 50 ML IV SCH ×4 (01:36→21:42)
[2017-06-26 05:39] LABS: EOSINOPHILS # (AUTO) 0.4 X10'3 (0-0.9); EOSINOPHILS % (AUTO) 8.5 % (0-6); HEMATOCRIT 24.8 % (35.0-45.0); HEMOGLOBIN 8.4 g/dl (12.0-16.0); LYMPHOCYTES # (AUTO) 1.4 X10'3 (1.1-4.8); LYMPHOCYTES % (AUTO) 27.3 % (21-51); MEAN CORPUSCULAR HEMOGLOBIN 26.2 PG (27.0-31.0); MEAN CORPUSCULAR HGB CONC 33.8 % (33.0-36.5); MEAN CORPUSCULAR VOLUME 77.6 FL (78-98); MEAN PLATELET VOLUME 7.5 FL (7.4-10.4); MONOCYTES # (AUTO) 0.4 X10'3 (0-0.9); MONOCYTES % (AUTO) 8.5 % (2-12); NEUTROPHILS # (AUTO) 2.8 X10'3 (1.8-7.7); NEUTROPHILS % (AUTO) 54.7 % (42-75); PLATELET COUNT 311 X10'3 (140-440); RED BLOOD COUNT 3.19 X10'6 (4.20-5.60); RED CELL DISTRIBUTION WIDTH 18.1 % (11.5-14.5)
[2017-06-26 05:49] LABS: ALBUMIN 2.4 G/DL (3.4-5.0); ANION GAP 6 (8-16); BLOOD UREA NITROGEN 8 MG/DL (7-18); BUN/CREATININE RATIO 16.7 (6.6-38.0); CALCIUM 8.7 MG/DL (8.5-10.1); CHLORIDE 105 MMOL/L (99-107); CREATININE 0.48 MG/DL (0.40-0.90); GLUCOSE 154 MG/DL (70-104); MAGNESIUM 1.6 MG/DL (1.5-2.4); POTASSIUM 3.6 MMOL/L (3.5-5.1); SODIUM 141 MMOL/L (135-145); TOTAL CARBON DIOXIDE 29.6 MMOL/L (24-32); eGFR > 90 ML/MIN
[2017-06-26 07:00] VITALS: BP 152/56
[2017-06-26] MEDS: gabapentin 300mg capsule PO SCH ×2 (08:02→17:32)
[2017-06-26] MEDS: amitriptyline 10mg tablet PO SCH (08:02)
[2017-06-26] MEDS: amLODIPine 5mg tablet PO SCH (08:02)
[2017-06-26] MEDS: atorvastatin 20mg tablet PO SCH (08:02)
[2017-06-26] MEDS: pantoprazole 40mg Tablet.DR PO SCH (08:03)
[2017-06-26 08:26] LABS: CLARITY,URINE CLEAR (Clear); COLOR,URINE YELLOW (Yellow); GLUCOSE, URINE NEGATIVE (Neg); KETONES,URINE NEGATIVE (Neg); LEUKOCYTE ESTERASE ,URINE SMALL (Neg); NITRITES, URINE NEGATIVE (Neg); OCCULT BLOOD,URINE NEGATIVE (Neg); PROTEIN,URINE NEGATIVE (Neg); UROBILINOGEN,URINE 0.2 E.U/dL (0.2-1.0)
[2017-06-26 08:34] LABS: UA COLLECTION TYPE CLN CATCH MIDSTREAM
[2017-06-26 08:36] LABS: BACTERIA,URINE NONE SEEN /HPF (Neg); MUCUS STRANDS NONE SEEN /LPF (Neg); RBC,URINE NONE SEEN /HPF (0-2); SQUAMOUS EPITHELIAL CELL,UR MODERATE /LPF (FEW); YEAST MODERATE /HPF (NEGATIVE)
[2017-06-26] MEDS: insulin Lispro (HumaLOG) vial - multi-dose SQ SCH ×3 (09:56→19:12)
[2017-06-26 11:13] VITALS: BP 126/57
[2017-06-26] MEDS: normal saline 1000ml 1,000 ML IV SCH (14:23)
[2017-06-26 20:00] VITALS: BP 116/47
[2017-06-26] MEDS: insulin glargine (Lantus) pen - multi-dose SQ SCH (21:40)
[2017-06-26] MEDS: diphenhydrAMINE 25mg capsule PO PRN (22:21)
[2017-06-26 23:00] VITALS: BP 118/50
[2017-06-27] MEDS: HYDROmorphone/NS 1 mg/ml CADD 50 ML IV SCH ×12 (01:00→23:00)
[2017-06-27] MEDS: gabapentin 300mg capsule PO SCH ×3 (01:21→15:38)
[2017-06-27] MEDS: piperacillin/tazo 3.375gm/50ml 50 ML IV SCH ×4 (01:24→21:20)
[2017-06-27] MEDS: CADD PCA waste documentation MC SCH (05:19)
[2017-06-27] MEDS: amLODIPine 5mg tablet PO SCH (07:42)
[2017-06-27] MEDS: pantoprazole 40mg Tablet.DR PO SCH (07:42)
[2017-06-27] MEDS: amitriptyline 10mg tablet PO SCH (07:43)
[2017-06-27] MEDS: atorvastatin 20mg tablet PO SCH (07:43)
[2017-06-27] MEDS: normal saline 1000ml 1,000 ML IV SCH ×2 (07:45→21:32)
[2017-06-27] MEDS: insulin Lispro (HumaLOG) vial - multi-dose SQ SCH ×3 (07:49→20:16)
[2017-06-27 07:51] VITALS: BP 115/50
[2017-06-27 10:55] LABS: % IRON SATURATION 14 % (11-46); IRON 36 UG/DL (49-151); TOTAL IRON BINDING CAPACITY 258 UG/DL (259-388)
[2017-06-27 11:53] LABS: ABSOLUTE RETICS # 121000 /CUMM (23000-93000); BASOPHILS % (AUTO) 0.8 % (0-1); EOSINOPHILS # (AUTO) 0.4 X10'3 (0-0.9); EOSINOPHILS % (AUTO) 8.7 % (0-6); HEMATOCRIT 24.6 % (35.0-45.0); HEMOGLOBIN 8.3 g/dl (12.0-16.0); LYMPHOCYTES # (AUTO) 1.3 X10'3 (1.1-4.8); LYMPHOCYTES % (AUTO) 27.7 % (21-51); MEAN CORPUSCULAR HGB CONC 33.6 % (33.0-36.5); MEAN CORPUSCULAR VOLUME 77.3 FL (78-98); MEAN PLATELET VOLUME 7.9 FL (7.4-10.4); MONOCYTES # (AUTO) 0.4 X10'3 (0-0.9); MONOCYTES % (AUTO) 8.5 % (2-12); NEUTROPHILS # (AUTO) 2.5 X10'3 (1.8-7.7); NEUTROPHILS % (AUTO) 54.3 % (42-75); PLATELET COUNT 296 X10'3 (140-440); RED BLOOD COUNT 3.18 X10'6 (4.20-5.60); RED CELL DISTRIBUTION WIDTH 18.3 % (11.5-14.5); RETICULOCYTE % (AUTO) 3.8 % (0.5-1.5); WHITE BLOOD COUNT 4.7 X10'3 (4.5-11.0)
[2017-06-27 13:42] VITALS: BP 138/51
[2017-06-27 20:00] VITALS: BP 117/51
[2017-06-27] MEDS: lactobacillus rhamnosus 10,000 MMU CELLS/CAPSULE PO SCH (21:20)
[2017-06-27] MEDS: insulin glargine (Lantus) pen - multi-dose SQ SCH (21:25)
[2017-06-28] VITALS: BP 119/53
[2017-06-28] MEDS: gabapentin 300mg capsule PO SCH ×4 (00:16→23:39)
[2017-06-28] MEDS: HYDROmorphone/NS 1 mg/ml CADD 50 ML IV SCH ×10 (01:00→19:00)
[2017-06-28] MEDS: piperacillin/tazo 3.375gm/50ml 50 ML IV SCH ×4 (02:08→19:41)
[2017-06-28] MEDS: amitriptyline 10mg tablet PO SCH (07:47)
[2017-06-28] MEDS: lactobacillus rhamnosus 10,000 MMU CELLS/CAPSULE PO SCH ×2 (07:47→19:41)
[2017-06-28] MEDS: pantoprazole 40mg Tablet.DR PO SCH (07:47)
[2017-06-28] MEDS: amLODIPine 5mg tablet PO SCH (07:47)
[2017-06-28] MEDS: atorvastatin 20mg tablet PO SCH (07:47)
[2017-06-28] MEDS: insulin Lispro (HumaLOG) vial - multi-dose SQ SCH ×3 (08:02→19:32)
[2017-06-28 08:43] VITALS: BP 145/59
[2017-06-28 11:49] VITALS: BP 143/59
[2017-06-28] MEDS: normal saline 1000ml 1,000 ML IV SCH (11:59)
[2017-06-28] MEDS ORDERED: PIPE3.374 IV (16:51)
[2017-06-28] MEDS ORDERED: HYDROmorphone inj. 0.5 MG/0.5 ML DISP.SYRIN IV PRN (18:55)
[2017-06-28] MEDS ORDERED: HYDROmorphone inj. 0.5 MG/0.5 ML DISP.SYRIN IV ONE (18:55)
[2017-06-28] MEDS: CADD PCA waste documentation MC SCH (19:10)
[2017-06-28] MEDS: HYDROcodone/acetaminophen 10/325mg tab PO PRN ×2 (19:42→23:39)
[2017-06-28 20:00] VITALS: BP 117/51
[2017-06-28] MEDS: insulin glargine (Lantus) pen - multi-dose SQ SCH (21:16)
[2017-06-28] MEDS: HYDROmorphone inj. 0.5 MG/0.5 ML DISP.SYRIN IV PRN (21:22)
[2017-06-28] MEDS ORDERED: HYDROmorphone 1 mg/ml syringe IV ONE (23:30)
[2017-06-28] MEDS ORDERED: HYDROmorphone inj. 0.5 MG/0.5 ML DISP.SYRIN ONE (23:36)
[2017-06-29] VITALS: BP 111/51
[2017-06-29] MEDS: normal saline 1000ml 1,000 ML IV SCH (01:23)
[2017-06-29] MEDS: piperacillin/tazo 3.375gm/50ml 50 ML IV SCH ×2 (01:23→08:10)
[2017-06-29] MEDS: HYDROmorphone inj. 0.5 MG/0.5 ML DISP.SYRIN IV PRN ×3 (01:24→09:25)
[2017-06-29] MEDS: atorvastatin 20mg tablet PO SCH (08:10)
[2017-06-29] MEDS: HYDROcodone/acetaminophen 10/325mg tab PO PRN (08:10)
[2017-06-29] MEDS: gabapentin 300mg capsule PO SCH (08:10)
[2017-06-29] MEDS: lactobacillus rhamnosus 10,000 MMU CELLS/CAPSULE PO SCH (08:11)
[2017-06-29] MEDS: pantoprazole 40mg Tablet.DR PO SCH (08:11)
[2017-06-29] MEDS: amitriptyline 10mg tablet PO SCH (08:11)
[2017-06-29] MEDS: amLODIPine 5mg tablet PO SCH (08:11)
[2017-06-29] MEDS: insulin Lispro (HumaLOG) vial - multi-dose SQ SCH ×2 (08:33→12:55)
[2017-06-29 08:44] VITALS: BP 142/53
[2017-06-29] MEDS ORDERED: LANTUS SQ (11:31)
[2017-06-29 14:00] VITALS: BP 147/57
[2017-06-30] MEDS ORDERED: ALPR-624 PO (16:10)
== END 2017-06-29 14:40 | disposition home health service (06) | DRG 617 ==
LOC: ER 15:54 → ED HOLD 22:10 → SUR 3N 06-22 14:19 → CMPBEDREQ 06-22 23:23 → SUR 3N 06-25 21:04
PROVIDERS: ADMIT Family Medicine; ATTEND Internal Medicine
PROC: 0Y6R0Z0 Detachment at Right 2nd Toe, Complete, Open Approach (ICD-10-PCS; 2017-06-22)
PROC: 0Y6P0Z0 Detachment at Right 1st Toe, Complete, Open Approach (ICD-10-PCS; principal; 2017-06-22 13:35)
DX: E11.69 Type 2 diabetes mellitus with other specified complication (principal); E11.52 Type 2 diabetes mellitus with diabetic peripheral angiopathy with gangrene; L97.519 Non-pressure chronic ulcer of other part of right foot with unspecified severity; B37.49 Other urogenital candidiasis; M86.8X7 Other osteomyelitis, ankle and foot; E11.42 Type 2 diabetes mellitus with diabetic polyneuropathy; E11.621 Type 2 diabetes mellitus with foot ulcer; G89.29 Other chronic pain; E87.6 Hypokalemia; S81.801A Unspecified open wound, right lower leg, initial encounter; E78.5 Hyperlipidemia, unspecified; X58.XXXA Exposure to other specified factors, initial encounter; L03.031 Cellulitis of right toe; D50.9 Iron deficiency anemia, unspecified; I10 Essential (primary) hypertension; I99.8 Other disorder of circulatory system; Z79.4 Long term (current) use of insulin; Z82.49 Family history of ischemic heart disease and other diseases of the circulatory system; Z83.3 Family history of diabetes mellitus; Z87.891 Personal history of nicotine dependence; Z89.512 Acquired absence of left leg below knee; Z88.8 Allergy status to other drugs, medicaments and biological substances; Z90.49 Acquired absence of other specified parts of digestive tract; Z79.899 Other long term (current) drug therapy; Y93.89 Activity, other specified; Y92.89 Other specified places as the place of occurrence of the external cause; Y99.8 Other external cause status
CPT/HCPCS: 96361; 96374; 99285; Z7506; 36415; 71045; 80048; 80053; 81001; 82728; 82948; 83540; 83550; 83735; 84132; 85025; 85045; 85610; 85730; 87070; 87077; 87088; 97110; 97162; 97530; A4649; A6213; A6222; A6257; A6446; A6449; A7000; J0131; J1170; J1815; J2250; J2270; J2543; J2704; J3010; J3370; J3480; J7030; J7120; Q0163

== ENCOUNTER → 2017-06-30 | Emergency (ER) | payer BC ==
[~2017-06-30] VITALS: Ht 157.5 cm; Wt 68.0 kg
[~2017-06-30] MED LIST changes: +ALPR-624 PO; +GABA300C PO; -GABA800T2 PO; +LORazepam 1 MG tablet PO ONE; +PIPE3.374 IV; +diphenhydrAMINE 25mg capsule PO ONE
[2017-06-30 15:50] LABS: BASOPHILS # (AUTO) 0.1 X10'3 (0-0.2); BASOPHILS % (AUTO) 0.5 % (0-1); EOSINOPHILS # (AUTO) 0.6 X10'3 (0-0.9); EOSINOPHILS % (AUTO) 6.2 % (0-6); HEMATOCRIT 31.8 % (35.0-45.0); HEMOGLOBIN 10.5 g/dl (12.0-16.0); LYMPHOCYTES # (AUTO) 1.9 X10'3 (1.1-4.8); LYMPHOCYTES % (AUTO) 19.7 % (21-51); MEAN CORPUSCULAR HEMOGLOBIN 25.8 PG (27.0-31.0); MEAN CORPUSCULAR HGB CONC 32.9 % (33.0-36.5); MEAN CORPUSCULAR VOLUME 78.4 FL (78-98); MEAN PLATELET VOLUME 7.7 FL (7.4-10.4); MONOCYTES # (AUTO) 0.5 X10'3 (0-0.9); MONOCYTES % (AUTO) 5.7 % (2-12); NEUTROPHILS # (AUTO) 6.4 X10'3 (1.8-7.7); NEUTROPHILS % (AUTO) 67.9 % (42-75); PLATELET COUNT 393 X10'3 (140-440); RED BLOOD COUNT 4.06 X10'6 (4.20-5.60); RED CELL DISTRIBUTION WIDTH 17.5 % (11.5-14.5); WHITE BLOOD COUNT 9.4 X10'3 (4.5-11.0)
[2017-06-30 16:02] LABS: PARTIAL THROMBOPLASTIN TIME 24 SECONDS (22-32); PROTHROMBIN TIME 10.1 SECONDS (9.0-12.0)
[2017-06-30 16:07] LABS: ANION GAP 11 (8-16); BLOOD UREA NITROGEN 8 MG/DL (7-18); BUN/CREATININE RATIO 13.3 (6.6-38.0); CHLORIDE 104 MMOL/L (99-107); GLUCOSE 155 MG/DL (70-104); POTASSIUM 3.8 MMOL/L (3.5-5.1); SODIUM 142 MMOL/L (135-145); TOTAL CARBON DIOXIDE 27.4 MMOL/L (24-32)
[2017-06-30 16:08] LABS: ALANINE AMINOTRANSFERASE 28 U/L (12-78); ALBUMIN 3.2 G/DL (3.4-5.0); ALBUMIN/GLOBULIN RATIO 0.7 (1.1-1.5); ALKALINE PHOSPHATASE 151 IU/L (46-116); ASPARTATE AMINO TRANSFERASE 27 U/L (10-37); BILIRUBIN,TOTAL 0.3 MG/DL (0.1-1.0); CALCIUM 9.6 MG/DL (8.5-10.1); TOTAL PROTEIN 7.5 G/DL (6.4-8.2); eGFR > 90 ML/MIN
[2017-06-30 17:05] VITALS: BP 131/80
== END | disposition home or self-care (01) ==
LOC: ER 14:36
DX: F41.9 Anxiety disorder, unspecified (principal); I10 Essential (primary) hypertension; G89.29 Other chronic pain; E11.9 Type 2 diabetes mellitus without complications; Z79.4 Long term (current) use of insulin; Z79.899 Other long term (current) drug therapy; Z88.1 Allergy status to other antibiotic agents; Z88.8 Allergy status to other drugs, medicaments and biological substances; Z56.0 Unemployment, unspecified; Z90.49 Acquired absence of other specified parts of digestive tract; Z98.890 Other specified postprocedural states
CPT/HCPCS: 36415; 71045; 80053; 84484; 85025; 85610; 85730; 93005; 99285; A6446; A6449; Q0163

== ENCOUNTER 2018-01-18 13:08 | Outpatient (CLI) | payer BC ==
[~2018-01-18 13:08] MED LIST changes: -LORazepam 1 MG tablet PO ONE; -PIPE3.374 IV; -diphenhydrAMINE 25mg capsule PO ONE
== END 2018-01-18 23:59 | disposition home or self-care (01) ==
LOC: VAS 13:08
PROVIDERS: ATTEND Surgery
DX: R60.0 Localized edema (principal); E11.9 Type 2 diabetes mellitus without complications; Z87.891 Personal history of nicotine dependence; Z79.4 Long term (current) use of insulin
CPT/HCPCS: 93971